=== PATIENT | male | born 1935 | race Caucasian/White ===

== ENCOUNTER → 2016-09-19 | Outpatient (CLI) | payer BC ==
[~2016-09-19] MED LIST: ASPEC81 PO; LACT10SO17 PO; LPT20 PO; MULT-506 PO; OMEP20TA PO; PRCSR30 PO; PRS5 PO; TERA5CAP PO; THIA50TA3 PO
--- NOTE | 2016-09-19 09:43 | DIAGNOSTIC IMAGING REPORT ---
KUB CLINICAL HISTORY: Nephrolithiasis. COMPARISON STUDY: KUB August 03, 2015. FINDINGS: A 3 mm calculus within the lower pole of the left kidney is unchanged. No ureteral calculi are identified. Pelvic calcifications represent phleboliths. There are cholecystectomy clips. IMPRESSION: 1. No change in a 3 mm left renal calculus. 2. No ureteral calculi identified. Electronically signed by: Markus Lima M.D. 09/19/2016 9:41 AM Dictated Date/Time: 09/19/2016 9:39 AM
== END | disposition home or self-care (01) ==
LOC: C.RAD 08:49
PROVIDERS: ATTEND Urology
DX: N20.0 Calculus of kidney (principal); N40.1 Benign prostatic hyperplasia with lower urinary tract symptoms

== ENCOUNTER → 2016-10-25 | Outpatient (CLI) | payer BC ==
[2016-10-25 12:40] LABS: ESTIMATED AVERAGE GLUCOSE 131 mg/dl; HA1C FLAG Normal (Normal)
[2016-10-25 12:42] LABS: ALT/SGPT 30 U/L (12-78); BLOOD UREA NITROGEN 14 mg/dl (7-18); BUN/CREATININE RATIO 15.8 (10-20); CALCIUM 8.7 mg/dl (8.5-10.1); CARBON DIOXIDE 29 mmol/L (21-32); CHLORIDE 108 mmol/L (98-107); GLUCOSE 98 mg/dl (70-99); POTASSIUM 4.3 mmol/L (3.5-5.1); SODIUM 140 mmol/L (136-145)
[2016-10-25 12:44] LABS: ALB/GLOB RATIO 1.2 (0.9-2); ALKALINE PHOSPHATASE 70 U/L (45-117); AST/SGOT 31 U/L (15-37); CHOLESTEROL 114 mg/dl (0-200); CHOLESTEROL/HDL RATIO 1.8; HDL CHOLESTEROL 65 mg/dl; LDL CHOLESTEROL CALCULATED 36 mg/dl; TRIGLYCERIDES 67 mg/dl (0-150); VERY LOW DENSITY LIPOPROT CALC 13 mg/dl
[2016-10-25 12:45] LABS: HEMATOCRIT 39.2 % (42-52); MEAN CORPUSCULAR HEMOGLOBIN 30.7 pg (25-34); MEAN CORPUSCULAR HGB CONC 32.7 g/dl (32-36); MEAN PLATELET VOLUME 12.3 fL (7.4-10.4); PLATELET COUNT 114 K/uL (130-400); RED BLOOD COUNT 4.17 M/uL (4.7-6.1); WHITE BLOOD COUNT 5.27 K/uL (4.8-10.8)
[2016-10-25 13:35] LABS: BASO % 0.4 %; BASO ABS # 0.02 K/uL (0-0.2); COMPLETE YES; EOS % 7.2 %; IG% 0.4 %; LYMPH % 35.3 %; LYMPH ABS # 1.86 K/uL (1.2-3.4); MONO % 6.3 %; NEUT % 50.4 %
--- NOTE | 2016-10-30 07:36 | CODING QUERY MEDICAL NECESSITY ---
SUPPORTING DIAGNOSIS NEEDED A supporting diagnosis is required for the test/procedure performed on this patient in order for us to be reimbursed by the patient's insurance. Please provide a supporting diagnosis for the following test/procedure listed below next to the test name along with your signature. *If there is no additional diagnosis for this patient that would support the following test/procedure please document that below next to the test/procedure. Test(s)/Procedure(s) that require a supporting diagnosis: * HEMOGLOBIN A1C DIAGNOSIS: Provider Signature: Date: Thank you Ana Antonio [employer] Once completed, please kindly fax back to [phone] For questions please call [phone]
== END | disposition home or self-care (01) ==
LOC: C.LABBFT 08:18
PROVIDERS: ATTEND Internal Medicine
DX: R26.0 Ataxic gait (principal); R73.9 Hyperglycemia, unspecified

== ENCOUNTER → 2017-06-19 | Outpatient (CLI) | payer BC ==
[2017-06-19 09:44] LABS: BASO % 0.5 %; BASO ABS # 0.03 K/uL (0-0.2); EOS % 5.8 %; EOS ABS # 0.36 K/uL (0-0.5); HEMATOCRIT 40.3 % (42-52); HEMOGLOBIN 13.9 g/dL (14.0-18.0); IG# 0.01 K/uL (0.00-0.02); LYMPH ABS # 1.62 K/uL (1.2-3.4); MEAN CELL VOLUME 91.4 fL (80-100); MEAN CORPUSCULAR HEMOGLOBIN 31.5 pg (25-34); MEAN CORPUSCULAR HGB CONC 34.5 g/dl (32-36); MEAN PLATELET VOLUME 11.1 fL (7.4-10.4); MONO % 7.7 %; MONO ABS # 0.48 K/uL (0.11-0.59); NEUT % 59.8 %; NEUT ABS # 3.72 K/uL (1.4-6.5); PLATELET COUNT 102 K/uL (130-400); RED CELL DISTRIBUTION WIDTH CV 12.6 % (11.5-14.5); WHITE BLOOD COUNT 6.22 K/uL (4.8-10.8)
[2017-06-19 10:17] LABS: BLOOD UREA NITROGEN 17 mg/dl (7-18); CALCIUM 8.7 mg/dl (8.5-10.1); CARBON DIOXIDE 28 mmol/L (21-32); CREATININE 0.89 mg/dl (0.60-1.40); GLUCOSE 102 mg/dl (70-99); POTASSIUM 4.2 mmol/L (3.5-5.1); SODIUM 139 mmol/L (136-145); URIC ACID 5.4 mg/dl (2.6-7.2)
[2017-06-19 10:27] LABS: CHOLESTEROL 117 mg/dl (0-200); LDL CHOLESTEROL CALCULATED 47 mg/dl
[2017-06-19 10:33] LABS: HEMOGLOBIN A1C 6.1 % (4.5-5.6)
== END | disposition home or self-care (01) ==
LOC: C.LABBFT 08:41
PROVIDERS: ATTEND Internal Medicine
DX: E78.5 Hyperlipidemia, unspecified (principal)

== ENCOUNTER → 2017-10-21 | Outpatient (CLI) | payer BC ==
[~2017-10-21] MED LIST changes: +ACET-24 PO; -ASPEC81 PO; +ASPI81TA28 PO; +ATOR-22 PO; +CLB100 PO; +FINA5TAB PO; -LACT10SO17 PO; +LACT10SO3 PO; +LDDP5 TD; -LPT20 PO; -OMEP20TA PO; -PRCSR30 PO; +PRLSR20 PO; -PRS5 PO
--- NOTE | 2017-10-21 10:59 | DIAGNOSTIC IMAGING REPORT ---
KUB HISTORY: Follow-up study in a patient with nephrolithiasis NEPHROLITHIASIS COMPARISON: KUB 09/19/2016, CT 10/01/2017. FINDINGS: The bowel gas pattern is non-obstructive. There is no organomegaly. Left nephrolithiasis redemonstrated measuring up to 2 mm. No ureteral calculi identified. Vascular calcifications about the pelvis are noted. Cholecystectomy clips. No pneumoperitoneum or pneumatosis. No fracture. Degenerative changes of the lower lumbar spine, pelvis and hips. Chronic interstitial opacities about the lung bases. IMPRESSION: Left nephrolithiasis without ureteral calculi. Electronically signed by: Elver Bain M.D. 10/21/2017 10:58 AM Dictated Date/Time: 10/21/2017 10:49 AM
== END | disposition home or self-care (01) ==
LOC: C.RAD 10:34
PROVIDERS: ATTEND Urology
DX: N20.0 Calculus of kidney (principal)

== ENCOUNTER 2020-09-14 08:45 | Observation (INO) ==
--- NOTE | 2020-09-07 11:30 | Anesthesiology Consultation ---
Date of Service September 07, 2020 Assessment & Plan (1) Encounter for pre-operative examination: COVID Status: As of 09/07 PAT second vp hr assessment, patient denies travel to endemic area, known exposure/sick contacts, or symptoms of COVID19. Patient fully vaccinated with Pfizer vaccine as of 05/20/2020. He reports he no longer wears a mask if it is not required. Preoperative COVID19 testing to be completed on 09/12. Cardiology clearance 08/02/2020: "I believe his degree of aortic stenosis is not quite severe. The imaging seemed adequate, and the dimensionless index was approximately 0.34. There were no velocities over 4 m/sec. He is not appear to have symptoms associated with severe aortic stenosis. He was actually out shoveling snow a short time frame before his echo examination. He did not have symptoms of chest pain or limiting dyspnea at that time. 2. Preoperative: He never completed the stress portion of his echocardiogram. I think we can order a perfusion study to see if there is any high risk coronary disease. In the absence of high risk coronary disease I think he would be a reasonable candidate for operative intervention. If a procedure done under local anesthetic is expected to have less hemodynamic effect, this would be preferable over a general anesthetic." Pt completed myocardial perfusion study on 08/23, negative for ischemia. Nephrology/PCP office visit 08/11/2020: "...his major complaint are symptoms of his left inguinal hernia...His other issues seem to be stable. His blood pressure is adequate. His hemoglobin A1c is only in a borderline range. His aortic stenosis does not seem to be particularly severe. He has not had any recent issues with nephrolithiasis. He does have benign prostatic hypertrophy from which she is only minimally symptomatic. 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 A peripheral neuropathy may be related to his hepatic disease but also may be related to his age. He has significant pulmonary fibrosis noted on CT scan. However, he seems to be doing quite well with no evidence of respiratory failure. He does have an intermittent cough but I doubt that that is related to his pulmonary fibrosis. I will make no changes in his regimen pending his stress test." Pulmonary Clearance 09/02/20: "85-year-old male with significant bronchiectasis to the bilateral lower lobes as well as subpleural fibrosis. Serological evaluation was negative and follow-up CT scan does demonstrate some progression of the severe bronchiectatic and fibrotic changes. His quantitative immunoglobulins did show a mildly decreased IgG subclass however the clinical significance of this is unclear especially in an 85-year-old gentleman...Abnormal CT scan: The patient does have an area of thick-walled cavity formation in the left lower lobe. This may be infectious but he is devoid of symptoms. I recommended a follow-up CT scan in 2months...The patient would like to get a hernia repair done as quickly as possible. 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 He is at risk for pulmonary complications in the postoperative setting including hypoxemia, pneumonia, and respiratory insufficiency. I believe he is as optimized as we can get him from a pulmonary standpoint and I think he can undergo the proposed surgical procedure without additional work-up. He may require supplemental oxygen. Early ambulation and mobilization is recommended. DVT prophylaxis per general surgery. We would be happy to assist with perioperative or postoperative respiratory issues if needed. If the surgery can be done without a general anesthesia, it may decrea se the risk of his pulmonary complications. Planned procedure is laparoscopic, requiring general anesthesia. Based on above recommendations from cardio and pulmonary, preferred approach would be open hernia repair with sedation with local anesthesia to reduce complications. Discussed case with Hemant Rodriguez and Malathi. Agree sedation would be preferable, should be discussed with surgeon, and patient needs to be aware of increased risk of pulmonary complications with GA. Advise this be discussed between surgeon, patient and [facility] DOS. Per surgeon's H+P, plan is to admit patient post-op due to significant comorbidities. Due to increased burden of inpatients from COVID-19 pandemic, patient may be cohorted with a roommate post-op. Will thus plan for recheck with [employer] [facility] AM DOS. OR aware. [facility] order placed. Chart Review Chart Review: Acceptable Risk for Surgery and Patient NOT seen in Pre Admission Testing History Surgery Operation Date: 09/14/20 07:00 Proposed Procedures p Left Laparoscopic Inguinal Hernia Repair, Possible Right Inguinal Hernia Repair - John Roberts, DO, FACS Height/Weight Height: 5 ft 7 in Weight: 77.111 kg Allergies Allergy/AdvReac Type Severity Reaction Status Date / Time No Known Drug Allergies Allergy Unknown Verified 09/07/20 09:49 Medications Home Medications Medication Instructions Recorded Confirmed Last Taken thiamine HCl (vitamin B1) 50 mg 50 mg PO QAM tab 10/06/19 09/07/20 Unknown tablet nystatin-triamcinolone 100,000 1 appln TOPICAL BID #1 gm 10/21/19 09/07/20 Unknown unit/g-0.1 % topical cream albuterol sulfate 90 mcg/actuation 1 puff INH Q6H PRN #6.7 gm 05/23/20 09/07/20 Unknown aerosol inhaler docusate sodium 100 mg capsule 100 mg PO BID #60 cap 07/12/20 09/07/20 Unknown aspirin [Aspir-81] 81 mg PO QPM 07/22/20 09/07/20 Unknown finasteride 5 mg PO QPM 07/22/20 09/07/20 Unknown lactulose 10 g PO BID 07/22/20 09/07/20 Unknown halhcviuatya-kophgkmp-wltkmb 1 tab PO QAM 07/22/20 09/07/20 Unknown [Multivitamin 50 Plus] omeprazole 20 mg PO QAM 07/22/20 09/07/20 Unknown terazosin 5 mg PO QPM 07/22/20 09/07/20 Unknown atorvastatin 20 mg tablet 20 mg PO QPM #90 tab 09/02/20 09/07/20 Unknown tramadol 50 mg tablet 25 mg PO TID PRN #60 tab 09/02/20 09/07/20 Unknown vit C,X-Bh-hbkjx-lutein-zeaxan 1 tab PO BID 09/07/20 09/07/20 Unknown [PreserVision AREDS-2] Past Medical History Medical History Aortic valve stenosis At least moderate aortic stenosis. Patient was scheduled for nuclear stress echo 06/01/2020 but due to possible severe aortic stenosis noted on imaging felt best not to perform dobutamine stress. Patient had subsequent follow-up with cardiology, who feel the patient most likely has moderate aortic stenosis. He is asymptomatic. Bronchiect[facility]. Per high-red CT 08/30/20, "Severe bronchiectasis and multifocal subpleural reticulation and honeycombing consistent with pulmonary fibrosis. Mild progression since CT of October 14, 2018." Cerebral infarction, unspecified ~8 years ago (~2011). no deficits. Chronic cough Enlarged prostate Gastroesophageal reflux disease (07/21/12) Hearing loss Hyperglycemia Hgb A1C 5.9 on 04/06/20 Hypertension Interstitial pulmonary fibrosis Following with pulm for work up Laennec's cirrhosis (alcoholic) Cirrhosis with splenomegaly indicative of portal hypertension noted on high- res CT 08/30/20. Peripheral neuropathy Schatzki's ring SNHL (sensorineural hearing loss) SOB (shortness of breath) on exertion Transient ischemic attack Past Family History Family History Mother Heart disease Family/Other Family history of diabetes mellitus [place]AND[place] Other Hypertension Denies family history of Prostate cancer Past Surgical History Surgical History History of cataract surgery bilateral History of cholecystectomy 2010 History of colonoscopy History of esophagogastroduodenoscopy (EGD) History of hernia repair [facility] [address] [facility] Social History Smoking Status: Former smoker tobacco type: cigarettes Do You Dip or Chew Tobacco: No Smoking End Date: ~ Hx Alcohol Use: No Hx Substance Use: No substance use type: does not use Lab Results Anesthesia Preop Results Results Anesthesia Widget: WBC 5.32 K/uL (4.8-10.8) 08/08/20 Hgb 12.0 g/dL (14.0-18.0) L 08/08/20 Hct 36.6 % (42-52) L 08/08/20 Plt 117 K/uL (130-400) L 08/08/20 Na 142 mmol/L (136-145) 08/08/20 K 4.1 mmol/L (3.5-5.1) 08/08/20 Cl 108 mmol/L (98-107) H 08/08/20 CO2 30 mmol/L (21-32) 08/08/20 BUN 20 mg/dl (7-18) H 08/08/20 Creat 0.68 mg/dl (0.6-1.4) 08/08/20 Glucose Level 98 mg/dl (70-99) 08/08/20 TSH 1.980 uIu/ml (0.300-4.500) 08/08/20 HA1c 5.9 % (4.5-5.6) H 08/08/20 Testing Electrocardiogram Date: 07/27/20 Sinus rhythm at 79 bpm with first-degree AV block. Chest X-Ray Date: 06/23/20 IMPRESSION: Chronic interstitial lung disease and bronchiectasis. There is progressively worsened peripheral predominant interstitial opacities within the left greater than right lungs. Findings may be secondary to worsening fibrosis versus a superimposed infectious or inflammatory pneumonitis. Echocardiogram Date: 06/01/20 The patient has been scheduled for dobutamine stress echocardiogram. However there is evidence of aortic stenosis. The aortic valve could not be adequately visualized. With a limited views of the aortic valve there was at least moderate aortic stenosis. More significant aortic stenosis cannot be excluded based on this study. Because of the possibility of severe aortic stenosis it was felt best not to perform dobutamine stress. Resting echo images: Mild LVH. Normal LV systolic function and wall motion. Hyperdynamic overall left ventricular systolic function. EF greater than 70%. Normal LV size. The right ventricle was not well visualized. However the size and systolic function of the right ventricle appeared to be normal. No significant valvular regurgitation noted. Aortic valve was poorly visualized. It was difficult to sample the velocity across the aortic valve. With the available velocity sample to cross the aortic valve and the LV outflow tract the dimensionless aortic valve index was 0.34. This is consistent with moderate aortic stenosis. Stress Test Date: 08/23/20 Type: nuclear SUMMARY: 1. Lexiscan myocardial perfusion study negative for myocardial infarction or myocardial ischemia. 2. Non-dilated left ventricle with normal systolic function and no wall motion abnormalities. EF 80%. 3. Non-diagnostic stress ECG due to sub-maximal HR achieved with pharmacologic stress. No ischemic changes or ectopy seen. Other Testing High-resolution CT 08/30/2020 IMPRESSION: 1. Severe bronchiectasis and multifocal subpleural reticulation and honeycombing consistent with pulmonary fibrosis. Mild progression since CT of October 14, 2018. 2. Interval development of a 2.8 cm cavitary thick-walled left lower lobe lesion with smaller adjacent irregular nodules and apparent bronchovascular thickening/soft tissue within the left lower lobe. Although these findings may be infectious, a neoplastic etiology could appear similar. A short-term follow- up CT in 1 to 2 months is recommended. 3. Mildly enlarged mediastinal lymph nodes, slightly increased in size since CT of October 14, 2018. These are nonspecific in the setting of interstitial lung disease and can be assessed on follow-up chest CT. 4. Cirrhosis with splenomegaly indicative of portal hypertension. ACT 112: Positive. There are findings on this exam that require communication between the performing entity and the patient following Patient Test Result Information Act ([place] Act 112) guidelines. *reviewed by pulmonology, see office note
[~2020-09-14 08:45] MED LIST changes: -ACET-24 PO; -ASPI81TA28 PO; -ATOR-22 PO; -CLB100 PO; -FINA5TAB PO; -LACT10SO3 PO; -LDDP5 TD; +LR 15ML/HR IV SCH; -MULT-506 PO; -PRLSR20 PO; -TERA5CAP PO; -THIA50TA3 PO; +ceFAZolin 2000MG 2,000 MG/15 ML SYR IV SCH
--- NOTE | 2020-09-14 10:03 | History & Physical Bridge Note ---
Date of Service September 14, 2020 History & Physical Bridge Note I have examined the patient, reviewed the History & Physical and in the interval since the performance of the History & Physical I have noted the following changes of clinical significance: no changes noted
[2020-09-14] MEDS ORDERED: MIDAZOLAM HCL 1 MG/ML 2ML VIAL ONE (10:42)
[2020-09-14] MEDS ORDERED: fentaNYL citrate 100 MCG/2 ML VIAL ONE ×2 (10:42→12:27)
[2020-09-14] MEDS ORDERED: ONDANSETRON INJ 2 MG/ML 2 ML VIAL IV PRN ×2 (10:52→13:59)
[2020-09-14] MEDS ORDERED: KETOROLAC TROMETHAMINE 15 MG/ML VIAL IV PRN (10:52)
[2020-09-14] MEDS ORDERED: ALBUTEROL 0.083% NEBU SOLN 3 ML VIAL INH PRN (10:52)
[2020-09-14] MEDS ORDERED: ATROPINE SULFATE 0.1 MG/ML 10ML SYR IV PRN (10:52)
[2020-09-14] MEDS ORDERED: fentaNYL citrate 100 MCG/2 ML VIAL IV PRN (10:52)
[2020-09-14] MEDS ORDERED: BUPIVACAINE 0.5 % 5 MG/1 ML MPF 30ML VIAL ONE (11:07)
[2020-09-14] MEDS ORDERED: ETOMIDATE 2 MG/ML 20 ML VIAL IV ONE (12:00)
[2020-09-14] MEDS ORDERED: GLYCOPYRROLATE 0.2 MG/ML VIAL ONE (12:00)
[2020-09-14] MEDS ORDERED: ROCURONIUM BROMIDE 10 MG/ML 5 ML VIAL IV ONE (12:00)
[2020-09-14] MEDS ORDERED: NEOSTIGMINE METHYLSULFATE 1 MG/ML 10ML VIAL ONE (12:00)
[2020-09-14] MEDS ORDERED: PROPOFOL IV EMULSION 10 MG/ML 20 ML VIAL IV ONE (12:00)
[2020-09-14] MEDS ORDERED: ONDANSETRON INJ 2 MG/ML 2 ML VIAL ONE (12:00)
--- NOTE | 2020-09-14 12:46 | Operative Report ---
PG Post Operative Report Pre & Post Diagnosis Operation Date: 09/14/20 10:50 Pre-Op Diagnosis: Left Inguinal Hernia Post-Op Diagnosis: Recurrent left Inguinal Hernia I identified the patient and participated in the time-out.: Yes Procedure Operation Date: 09/14/20 10:50 Actual Procedures p Left Laparoscopic Inguinal Hernia Repair with Mesh(Left) - John Roberts DO, REYES Surgeon John Roberts DO, REYES Instrumentation And Controls Designer Nima Gonzalez Estimated Blood Loss 5 Findings Consistent with Post-Op Diagnosis Moderate recurrent indirect inguinal hernia on the left. Scarring on the right and no evidence of obvious hernia, right not explored. ProGrip mesh placed in the left. Specimens None Anesthesia Type General Complications none Disposition Accompanied Patient To Recovery: No Disposition: Recovery Room Indications 85-year-old male with recurrent symptomatic moderate sized left inguinal hernia, desires repair. We discussed his repair options to include open repair under sedation versus laparoscopic repair under general anesthesia. He was cleared for general anesthesia by pulmonology, cardiology, and nephrology. Plan for laparoscopic left inguinal hernia repair, possible right. The risks of the procedure were discussed, all questions were answered, and the patient agreed to proceed with surgery as planned. Description of Procedure The patient was properly identified, consented, and taken to the operating room where he was placed in the supine position. General endotracheal anesthesia was induced. SCDs and a safety belt were placed. A cook catheter was placed. Preoperative antibiotics were administered. The patient's groins and abdomen were prepped and draped in the standard sterile fashion. Surgical timeout was performed and all parties were in agreement that this was the correct patient and procedure to be performed and we continued as planned. A transverse infraumbilical incision was made to the right of midline with electrocautery and deepened down to the fascia with blunt dissection. A transverse incision was made in the anterior rectus sheath on the right. The rectus muscle was pulled laterally exposing the posterior rectus sheath. A large Marla was used to bluntly dissect the preperitoneal space down to the pubic symphysis. This was then replaced with a laparoscopic preperitoneal dissection balloon, which was inflated under direct visualization and held in place for approximately 30 seconds. This was then removed and the preperitoneal space was insufflated with carbon dioxide which the patient tolerated without incident. Two 5 mm ports were then placed in the midline. Dissection started on the left, beginning laterally at the anterior superior iliac spine. Bernardo's ligament was then dissected medially. The cord structures were circumferentially dissected. A moderate sized recurrent indirect inguinal hernia was noted. It was dissected away from the cord structures. The contralateral side was then dissected in a similar manner. There was some scarring from his prior repair and therefore we did not explore too much. There was no evidence of a recurrent hernia on the right. Progrip mesh was placed on the left and covered the direct, indirect, and femoral spaces. The mesh was held in place, the ports were removed, and the space was allowed to collapse. The anterior rectus sheath fascia was closed with 3-0 Vicryl suture. The skin of all port sites were closed with 4-0 Monocryl subcuticular suture, and Dermabond was placed over the incisions. The patient was extubated in the operating room and taken to the PACU for recovery without apparent incident. Any air in the scrotum was reduced, and the testicles were confirmed to be in the scrotum. All sponge, instrument, and needle counts were correct at the conclusion of the procedure. The patient tolerated the procedure well. The physician's marketing assistant retail division was present and scrubbed for the entire the case. He was critical in positioning the patient, prepping and draping, retraction and exposure, driving the laparoscope, closure the incisions, placement of the dressings. I attest to the content of the Intraoperative Record and any orders documented therein. Any exceptions are noted below.
--- NOTE | 2020-09-14 13:30 | Anesthesiology Progress Note ---
Date of Service September 14, 2020 Anesthesia Post Procedure Vital Signs Vital Signs: Temp Pulse Pulse Resp BP Pulse Ox 09/14/20 13:25 36.4 C L 71 20 142/75 H 98 09/14/20 13:15 77 24 175/85 H 100 09/14/20 13:05 82 24 187/95 H 100 09/14/20 12:55 88 24 185/94 H 98 09/14/20 12:49 36.1 C L 82 22 173/92 H 100 09/14/20 09:30 36.6 C 74 18 189/96 H 98 Transfer of Care Handoff Completed per policy Notes Mental Status: alert / awake / arousable Patient Amnestic to Procedure: Yes Nausea / Vomiting: adequately controlled Pain: adequately controlled Airway Patency, RR, SpO2: stable & adequate BP & HR: stable & adequate Hydration State: stable & adequate Anesthetic Complications: no major complications apparent
[2020-09-14] MEDS ORDERED: MoRPHine SULFATE 2 MG/ML CARP IV PRN (13:59)
[2020-09-14] MEDS ORDERED: ALBUTEROL HFA 8 GM INHALER INH PRN (13:59)
[2020-09-14] MEDS ORDERED: LACTATED RINGER'S 1,000 ML IV SCH (13:59)
[2020-09-14] MEDS ORDERED: MoRPHine SULFATE 4 MG/ML 1 ML CARP\\VIAL IV PRN (13:59)
[2020-09-14] MEDS ORDERED: oxyCODONE/ACETAMINOPHEN 5mg/325mg TAB PO PRN ×2 (13:59)
--- NOTE | 2020-09-14 15:32 | Surgery Progress Note ---
Date of Service September 14, 2020 Assessment & Plan (1) Left inguinal hernia: stable post op f/u in AM Admission and Anticipated Discharge Date Admission Date: September 14, 2020 Subjective had clear tray for lunch, minimal pain, no CP/SOB Results & Data ([facility]) Vital Signs (Past 12 Hours) Vital Signs Temp Pulse Pulse Resp BP Pulse Ox 09/14/20 14:42 36.5 C 54 L 16 123/67 97 09/14/20 14:12 36.5 C 71 18 119/68 97 09/14/20 13:40 36.4 C L 24 134/70 97 09/14/20 13:35 64 24 142/75 H 98 09/14/20 13:25 36.4 C L 71 20 142/75 H 98 09/14/20 13:15 77 24 175/85 H 100 09/14/20 13:05 82 24 187/95 H 100 09/14/20 12:55 88 24 185/94 H 98 09/14/20 12:49 36.1 C L 82 22 173/92 H 100 09/14/20 09:30 36.6 C 74 18 189/96 H 98 PG Care Time/CCT Total # of Minutes Spent Total Time Spent with Patient: Total time spent is greater than 50% in coordination of care (as documented) at patient's floor/unit and/or counseling patient: Coding Level of Care Code None Diagnoses Left inguinal hernia K40.90
[2020-09-14] MEDS: DOCUSATE SODIUM 100 MG CAP PO SCH (19:42)
[2020-09-14] MEDS: LACTULOSE SYRUP 10 GM/15 ML BTL 960 ML PO SCH (19:44)
[2020-09-14] MEDS ORDERED: ATORVASTATIN 20 MG TAB PO SCH (21:00)
[2020-09-14] MEDS ORDERED: FINASTERIDE 5 MG TAB PO SCH (21:00)
[2020-09-14] MEDS ORDERED: TERAZOSIN HCL 5 MG CAP PO SCH (21:00)
[2020-09-14] MEDS ORDERED: ASPIRIN 81 MG ECTAB PO SCH (21:00)
--- NOTE | 2020-09-15 08:36 | Anesthesiology Progress Note ---
Date of Service September 15, 2020 Anesthesia Post Procedure Vital Signs Vital Signs: Temp Pulse Pulse Pulse Resp BP BP 09/15/20 07:30 37 C 69 18 145/84 H 09/15/20 03:05 36.8 C 72 17 144/64 H 09/14/20 22:08 36.4 C L 61 18 125/65 09/14/20 20:29 36.7 C 59 L 19 124/61 09/14/20 16:49 36.5 C 53 L 16 128/65 09/14/20 15:41 36.4 C L 68 16 112/60 09/14/20 14:42 36.5 C 54 L 16 123/67 09/14/20 14:12 36.5 C 71 18 119/68 09/14/20 13:40 36.4 C L 24 134/70 09/14/20 13:35 64 24 142/75 H 09/14/20 13:25 36.4 C L 71 20 142/75 H 09/14/20 13:15 77 24 175/85 H 09/14/20 13:05 82 24 187/95 H 09/14/20 12:55 88 24 185/94 H 09/14/20 12:49 36.1 C L 82 22 173/92 H 09/14/20 09:30 36.6 C 74 18 189/96 H Pulse Ox 09/15/20 07:30 92 09/15/20 03:05 93 09/14/20 22:08 93 09/14/20 20:29 94 09/14/20 16:49 98 09/14/20 15:41 99 09/14/20 14:42 97 09/14/20 14:12 97 09/14/20 13:40 97 09/14/20 13:35 98 09/14/20 13:25 98 09/14/20 13:15 100 09/14/20 13:05 100 09/14/20 12:55 98 09/14/20 12:49 100 09/14/20 09:30 98 Pain Intensity Lower Abdomen: Pain Intensity: 3 Notes Mental Status: alert / awake / arousable and participated in evaluation Patient Amnestic to Procedure: Yes Nausea / Vomiting: adequately controlled Pain: adequately controlled Airway Patency, RR, SpO2: stable & adequate BP & HR: stable & adequate Hydration State: stable & adequate Anesthetic Complications: no major complications apparent
[2020-09-15] MEDS: DOCUSATE SODIUM 100 MG CAP PO SCH (08:42)
[2020-09-15] MEDS: LACTULOSE SYRUP 10 GM/15 ML BTL 960 ML PO SCH (08:42)
[2020-09-15] MEDS ORDERED: PANTOprazole 40 MG TAB PO SCH (09:00)
--- NOTE | 2020-09-15 09:09 | Surgery Progress Note ---
Date of Service September 15, 2020 Assessment & Plan (1) Left inguinal hernia: POD#1 laparoscopic left inguinal hernia repair Patient doing well from surgical standpoint Tolerating a diet, denies pain/nausea/vomiting Abdomen soft, incisions c/d/i He has post op urinary retention requiring straight-cath x2. He feels like he has to go again. Spoke with RN, if he does not void spontaneously on next attempt we will replace a cook catheter and have patient follow up in the urology clinic. Cook catheter teaching to be performed prior to discharge. Patient agreeable with this plan. He says he has followed with urology in the past Dispo instructions reviewed... pt to follow up with Dr. Roberts in clinic within 1-2 weeks Admission and Anticipated Discharge Date Admission Date: September 14, 2020 Subjective Patient says he is feeling well. He has had some trouble with voiding overnight requiring straight-cath x2. He is already starting to feel bladder pressure again. He is otherwise tolerating a diet, no nausea/vomiting. He denies any abdominal pain. Physical Exam Physical Exam: awake/alert Constitutional: well developed and well nourished; no acute distress Respiratory: normal respiratory effort Gastrointestinal (Abdomen): Inspection/Auscultation: + abdominal surgical incision (incisions c/d/i with dermabond overtop, no signs of infection); abdomen not distended Percussion/Palpation: abdomen soft; abdomen nontender Results & Data ([facility]) Vital Signs (Past 12 Hours) Vital Signs Temp Pulse Pulse Resp BP Pulse Ox 09/15/20 07:30 37 C 69 18 145/84 H 92 09/15/20 03:05 36.8 C 72 17 144/64 H 93 09/14/20 22:08 36.4 C L 61 18 125/65 93 PG Care Time/CCT Total # of Minutes Spent Total Time Spent with Patient: Total time spent is greater than 50% in coordination of care (as documented) at patient's floor/unit and/or counseling patient: Coding Level of Care Code None Diagnoses Left inguinal hernia K40.90
--- NOTE | 2020-09-20 11:45 | Discharge Summary ---
Date of Service September 20, 2020 Principal Diagnosis Left inguinal hernia Urinary retention Discharge Exam Gastrointestinal (Abdomen) Inspection/Auscultation: + abdominal surgical incision (clean, dry) Percussion/Palpation: abdomen soft Discharge Data Allergies Allergy/AdvReac Type Severity Reaction Status Date / Time No Known Drug Allergies Allergy Unknown Verified 09/14/20 09:11 Procedures Performed Operation Date: 09/14/20 10:50 Actual Procedures p Left Laparoscopic Inguinal Hernia Repair with Mesh(Left) - John Roberts DO, FACS Hospital Course (1) Left inguinal hernia: 85 y/o male was taken to the operating room for laparoscopic left inguinal hernia repair. He was transferred to the surgical floor for overnight observation given his medical history and age. He did require several straight catheterizations overnight but was otherwise doing well. In the morning a cook cath was placed and plans were made for outpatient urology follow-up which he h as had in the past. He was tolerating diet and oral analgesics and was stable for discharge home with the cook. Total Time Total Time Spent Total Time Spent (In Minutes): 10 Discharge Plan Discharge Items Patient Disposition: Home - Self-Care Reason For Visit: Left Inguinal Hernia Discharge Diagnosis: left inguinal hernia repair Activity: Per Instructions section Lifting: No more than 10 pounds Bathing Comment: may shower; no soaking in tubs/pools Exercise/Sports: Wait until after follow-up appointment Driving/Machine Use: no driving while taking narcotics for pain Non-emergency contact: Surgeon Call non-emergency contact if: you have any medication questions, your symptoms worsen, your pain is not controlled, your pain is concerning for you, you have a fever, your temperature is above 101.5, your wound has increased redness, your wound has increased drainage and your wound pain has increased Follow-up/Referrals: Kvng Crabtree MD [Physician] - (The Urology office will call you with an appointment to follow up with them next week for removal of your cook and to perform a voiding trial. If you have not heard from them by 09/19/20 please call their office at [phone].) Kory Pham MD [Primary Care Provider] - John Roberts DO, FACS [Physician] - 09/27/20 9:00 am (Please call to schedule follow up in clinic within 1-2 weeks) Diet: Regular Addtl Attending Provider Instructions: You may ice your groin on and off alternating every 20 minutes as needed to help with pain/swelling. Please care for your cook catheter as instructed prior to discharge from the hospital. The Urology office will call you with an appointment to follow up with them next week for removal of your cook and perform a voiding trial. If you have not heard from them by 09/19/20 please call their office at [phone] to inquire for an appointment. Pending Studies at Discharge: No Stand-Alone Forms: [facility], Opioid Pain Management, Smoking Cessation Medications and DC Order Prescriptions: New oxycodone-acetaminophen [Percocet] 5-325 mg tablet 1 - 2 tab PO .q4-6h PRN (Reason: pain, for initial therapy, max 6 tabs per day) Qty: 10 RF: 0 Continued nystatin-triamcinolone 100,000-0.1 unit/g-% cream 1 appln topical BID Qty: 1 RF: 1 atorvastatin 20 mg tablet 20 mg PO QPM Qty: 90 RF: 3 albuterol sulfate 90 mcg/actuation HFA aerosol inhaler 1 puff INH Q6H PRN (Reason: shortness of breath or wheezing) Qty: 6.7 RF: 5 docusate sodium [Colace] 100 mg capsule 100 mg PO BID Qty: 60 RF: 0 thiamine HCl (vitamin B1) 50 mg tablet 50 mg PO QAM RF: 0 finasteride 5 mg tablet 5 mg PO QPM RF: 0 lactulose 10 gram/15 mL solution 10 g PO BID RF: 0 terazosin 5 mg capsule 5 mg PO QPM RF: 0 omeprazole 20 mg tablet,delayed release (DR/EC) 20 mg PO QAM RF: 0 aspirin 81 mg Tablet,Delayed Release (Dr/Ec) 81 mg PO QPM RF: 0 Multivitamin 50 Plus Tablet 1 tab PO QAM RF: 0 PreserVision AREDS-2 250-90-40-1 mg Capsule 1 tab PO BID RF: 0 Discontinued tramadol 50 mg tablet 25 mg PO TID PRN (Reason: pain) Qty: 60 RF: 3 Discharge Orders: Discharge Order (Routine); Ordered 09/15/20 Ordered By: Laurita Briggs/Other Patient Handouts: Discharge Instructions Caring for ... Admission Data Admit Date/Time: 09/14/20 12:50 Attending Provider: John Roberts Admit Provider: John oRberts Primary Care Provider: Kory Pham Other Interventions: Discharge Summary Assessment (RN) Last Done: 09/15/20 09:26 Coding Level of Care Code D/C Day Management <30 mins Diagnoses Left inguinal hernia K40.90
== END 2020-09-15 11:19 | disposition home or self-care (01) ==
LOC: 3N 08:45 → ASU 08:45
DX: I35.0 Nonrheumatic aortic (valve) stenosis; G62.9 Polyneuropathy, unspecified; K40.91 Unilateral inguinal hernia, without obstruction or gangrene, recurrent; Z79.82 Long term (current) use of aspirin; Z98.890 Other specified postprocedural states; Z79.899 Other long term (current) drug therapy; Z86.73 Personal history of transient ischemic attack (TIA), and cerebral infarction without residual deficits; Z87.891 Personal history of nicotine dependence; I10 Essential (primary) hypertension; K21.9 Gastro-esophageal reflux disease without esophagitis; K70.30 Alcoholic cirrhosis of liver without ascites

== ENCOUNTER 2021-01-19 17:45 | Inpatient (IN) ==
--- NOTE | 2021-01-19 18:19 | Emergency Department Note ---
Impression & Plan Acute hypoxemic respiratory failure, CHF (congestive heart failure), Leg swelling, Fecal impaction in rectum ED Provider Note NAME: ADDI NG AGE: 85 SEX: M : 1935 ARRIVES VIA: Walk-In INFORMANT: Patient, ED PROVIDER(S): Wilfred Veloz MD Chief Complaint: Constipation HPI: Patient does present due to concern for difficulty with having a bowel movement. The patient states that he has not had a bowel movement since Saturday and is had difficulty with passing gas. Patient states is primarily in the lower abdomen is pressure-like and nonradiating. Patient does have occasional pain in his testicles denies any swelling or penile pain or dysuria Patient denies any recent trauma. Patient has not taken anything at home other than stool softener which has not improved his symptoms. Patient denies any fevers or chills. He is vaccinated for Covid. Patient denies any alcohol tobacco or drug use. Patient denies any narcotics or allergy medications. Patient symptoms have gotten progressively worse over the week and are significantly worse compared to yesterday. Exacerbating or remitting factors. ROS: See HPI for pertinent positives and negatives. A total of 10 systems were reviewed and otherwise negative. Past medical history: See below Surgical history: See below Social history: See below Physical Exam: GENERAL: NAD, wearing glasses, wearing a mask, non-toxic. EYE EXAM: Normal conjunctiva. PERRL, no anisocoria and EOM's grossly intact w/o pain. NECK: Supple, no nuchal rigidity, no adenopathy, non-tender. No signs of meningismus. LUNGS: Decreased breath sounds left base. Normal chest wall mechanics. HEART: NSR, no MRG. ABDOMEN: Abdomen soft, non-tender, normo-active bowel sounds, no masses, no rebound or guarding. BACK: No CVA TTP. SKIN: No rashes and no bruising. : No testicular swelling or masses noted. UPPER EXTREMITIES: Upper extremities are grossly normal. LOWER EXTREMITIES: Grossly normal, 2-3+ bilateral lower extremity edema. NEURO EXAM: A&O x3, cranial nerves II-XII grossly intact, normal speech, moves all 4 extremities on command w/o issue. Differential diagnoses: Appendicitis, testicular torsion, infections, diverticulitis, UTI, obstruction, mesenteric ischemia, aortic pathology, inflammatory bowel disease, renal colic, PUD, pancreatitis, biliary pathology, hernia, volvulus, constipation, as well as other pathologies. Course: Patient was seen and evaluated the bedside. Full history physical exam was performed. Imaging Studies: See Below Cardiac monitoring: An order was placed for continuous cardiac monitoring. The monitor shows a rate of 77 with sinus rhythm. MDM: Patient did present with concern for constipation. Bladder scan was completed which is not very impressive so blood work was obtained given the patient's significant discomfort. Blood work is grossly unremarkable. The patient was noted to be borderline and intermittently hypoxic and thus I did review the patient's most recent weight and the patient is put on about 4 kg. Chest x-ray was obtained after CT showed that the patient may have a pleural effusion. Rectal impaction was also noted and did receive an enema. The patient was given Lasix. The patient was started on supplemental nasal cannula oxygen given the patient's oxygen requirement. I did speak with the on-call hospitalist and the patient was admitted to the medicine service. Patient has a normal white count with mild anemia of 10. Platelet count is unremarkable. The patient's kidney function is unremarkable. BNP was elevated with a negative troponin. Covid negative. Patient did receive antibiotics. Critical Care: I have personally spent 42 minutes of critical care time in direct management of this patient. This includes bedside care, interpretation of diagnostic studies, and testing, discussion with consultants, patient, and family members, and other require inpatient management activities. This 42 minutes is in excess of all separately billable procedures. Past Med/Surg History Medical History Aortic valve stenosis At least moderate aortic stenosis. Patient was scheduled for nuclear stress echo 06/01/2020 but due to possible severe aortic stenosis noted on imaging felt best not to perform dobutamine stress. Patient had subsequent follow-up with cardiology, who feel the patient most likely has moderate aortic stenosis. He is asymptomatic. Bronchiectasis Follows with [facility] pulmonary. Per high-red CT 08/30/20, "Severe bronchiectasis and multifocal subpleural reticulation and honeycombing consistent with pulmonary fibrosis. Mild progression since CT of October 14, 2018." Cerebral infarction, unspecified ~8 years ago (~2011). no deficits. Chronic cough Enlarged prostate Gastroesophageal reflux disease (07/21/12) Hearing loss Hyperglycemia Hgb A1C 5.9 on 04/06/20 Hypertension Interstitial pulmonary fibrosis Following with pulm for work up Laennec's cirrhosis (alcoholic) Cirrhosis with splenomegaly indicative of portal hypertension noted on high- res CT 08/30/20. Peripheral neuropathy Schatzki's ring SNHL (sensorineural hearing loss) SOB (shortness of breath) on exertion Transient ischemic attack Surgical History History of cataract surgery bilateral History of cholecystectomy 2010 History of colonoscopy History of esophagogastroduodenoscopy (EGD) History of hernia repair LI 1965 [facility] S/P left inguinal hernia repair (09/14/20) Left Laparoscopic Inguinal Hernia Repair with Mesh Dr. Roberts 09/14/2020 Family History Mother Heart disease Family/Other Family history of diabetes mellitus [place]AND[place] Other Hypertension Denies family history of Prostate cancer Social History Smoking Status: Never smoker Years Smoked: 10; Second Hand Exposure: Yes (hx); Hx Alcohol Use: No Hx Substance Use: No Preferred Language: Croatian Communication Ability: Effective Hearing Ability: Use of Hearing Aid [employer] Required: No Beliefs That Will Affect Care: None marital status: Current Living Situation: Spouse current occupational status: retired How many Children do You have: 4 Feels Safe at Home: Yes Seatbelt Use: always Assistive Devices: Glasses Allergies Allergies Allergy/AdvReac Type Severity Reaction Status Date / Time No Known Drug Allergies Allergy Unknown Verified 01/16/21 10:28 Home Meds Home Medications Medication Instructions Recorded Confirmed aspirin 81 mg tablet,delayed 81 mg PO QPM 07/22/20 01/19/21 release docusate sodium 100 mg capsule 100 mg PO BID PRN 01/15/21 01/19/21 (Colace) lactulose 10 gram/15 mL oral 10 g PO HS PRN 01/15/21 01/19/21 solution nystatin-triamcinolone 100,000 1 applic TOPICAL BID PRN 01/15/21 01/19/21 unit/g-0.1 % topical cream Previous Rx's Medication Instructions Recorded albuterol sulfate 90 mcg/actuation 1 puff INH Q6H PRN #6.7 gm 05/23/20 aerosol inhaler atorvastatin 20 mg tablet 20 mg PO QPM #90 tab 09/02/20 finasteride 5 mg tablet 5 mg PO QPM #90 tab 11/14/20 terazosin 5 mg capsule 5 mg PO QPM #90 cap 11/14/20 benzonatate 100 mg capsule 100 mg PO BID PRN #30 cap 12/30/20 (Aron Dalal) fluticasone propionate 50 1 spray INTRANASAL DAILY #16 g 01/02/21 mcg/actuation nasal spray,suspension (Flonase Allergy Relief) hydrocodone-homatropine 5 mg-1.5 5 ml PO BID PRN #200 ml 01/16/21 mg/5 mL oral syrup (Hycodan (with homatropine)) levofloxacin 500 mg tablet 500 mg PO DAILY #7 tab 01/16/21 Results & Data (ED) Vital Signs Vital Signs - 24 hr 01/19/21 17:49 01/19/21 18:22 01/19/21 18:30 Temperature 36.9 C Temperature Source Temporal Artery Scan Pulse Rate 88 91 H 83 Pulse Rate from SpO2 Sensor 91 H 86 Respiratory Rate 18 23 34 H Respiratory Effort / Characteristics Non-Labored Respiratory Depth Normal Blood Pressure 131/83 Blood Pressure Mean 99 Pulse Oximetry 94 94 94 Oxygen Delivery Method Room Air Nasal Cannula Nasal Cannula Oxygen Flow Rate 3 3 Sepsis Recent Fever Within 48 Hours No Sepsis New/Unexplained Change in Mental Status No Sepsis Action Taken by Nursing No Action Required Oxygen Flow Rate - Titration Pulse Oximetry Post Tiitration 01/19/21 18:40 01/19/21 18:50 01/19/21 19:00 Temperature Temperature Source Pulse Rate 81 81 79 Pulse Rate from SpO2 Sensor 80 82 79 Respiratory Rate 29 H 23 21 Respiratory Effort / Characteristics Respiratory Depth Blood Pressure Blood Pressure Mean Pulse Oximetry 94 98 99 Oxygen Delivery Method Nasal Cannula Nasal Cannula Nasal Cannula Oxygen Flow Rate 3 3 3 Sepsis Recent Fever Within 48 Hours Sepsis New/Unexplained Change in Mental Status Sepsis Action Taken by Nursing Oxygen Flow Rate - Titration 3 Pulse Oximetry Post Tiitration 95 01/19/21 19:10 01/19/21 19:20 01/19/21 20:00 Temperature Temperature Source Pulse Rate 72 78 76 Pulse Rate from SpO2 Sensor 76 75 78 Respiratory Rate 18 23 20 Respiratory Effort / Characteristics Respiratory Depth Blood Pressure 150/78 H 175/60 H Blood Pressure Mean 102 98 Pulse Oximetry 99 99 99 Oxygen Delivery Method Nasal Cannula Nasal Cannula Nasal Cannula Oxygen Flow Rate 3 3 3 Sepsis Recent Fever Within 48 Hours Sepsis New/Unexplained Change in Mental Status Sepsis Action Taken by Nursing Oxygen Flow Rate - Titration Pulse Oximetry Post Tiitration Home Medications Current Medication List: was personally reviewed by me Laboratory Data Attestation: I reviewed the patient's lab results. Result diagrams: 01/19/21 18:35 01/19/21 18:35 Lab Results 01/19/21 01/19/21 01/19/21 Range/Units 18:35 18:35 18:35 WBC 9.20 (4.8-10.8) K/uL RBC 3.69 L (4.7-6.1) M/uL Hgb 10.6 L (14.0-18.0) g/dL Hct 32.7 L (42-52) % MCV 88.6 (80-100) fL MCH 28.7 (25-34) pg MCHC 32.4 (32-36) g/dL RDW Std Deviation 45.9 (36.4-46.3) fL RDW Coeff of Jordy 14.1 (11.5-14.5) % Plt Count 179 (130-400) K/uL MPV 9.8 (7.4-10.4) fL Immature Gran % (Auto) 0.3 % Neut % (Auto) 86.1 % Lymph % (Auto) 6.1 % [place] % (Auto) 7.2 % Eos % (Auto) 0.2 % Baso % (Auto) 0.1 % Neut # (Auto) 7.92 H (1.4-6.5) K/uL Lymph # (Auto) 0.56 L (1.2-3.4) K/uL [place] # (Auto) 0.66 H (0.11-0.59) K/uL Eos # (Auto) 0.02 (0-0.5) K/uL Baso # (Auto) 0.01 (0-0.2) K/uL Immature Gran # (Auto) 0.03 H (0.00-0.02) K/uL Sodium 138 (136-145) mmol/L Potassium 4.1 (3.5-5.1) mmol/L Chloride 105 (98-107) mmol/L Carbon Dioxide 27 (21-32) mmol/L Anion Gap 6.0 (3-11) BUN 13 (7-18) mg/dl Creatinine 0.63 (0.6-1.4) mg/dl Est Cr Clr Drug Dosing Not Reportable Est GFR ( Amer) 103.4 ml/min Est GFR (Non-Af Amer) 89.2 ml/min BUN/Creatinine Ratio 21.4 H (10-20) Glucose 108 H (70-99) mg/dl Calcium 8.9 (8.5-10.1) mg/dl Total Bilirubin 1.0 (0.2-1) mg/dl AST 24 (15-37) U/L ALT 22 (12-78) U/L Alkaline Phosphatase 113 (45-117) U/L Troponin I < 0.015 (0-0.045) ng/ml NT-Pro-B Natriuret Pep 2722 H (0-1800) pg/ml Total Protein 6.1 L (6.4-8.2) gm/dl Albumin 2.0 L (3.4-5.0) gm/dl Globulin 4.1 H (2.5-4.0) gm/dl Albumin/Globulin Ratio 0.5 L (0.9-2) Lipase 42 L (73-393) U/L Urine Color Urine Appearance (Clear) Urine pH (4.5-7.5) Ur Specific [place] (1.000-1.030) Urine Protein (Negative) Urine Glucose (UA) (Negative) Urine Ketones (Negative) Urine Blood (Negative) Urine Nitrite (Negative) Urine Bilirubin (Negative) Urine Urobilinogen (Negative) Ur Leukocyte Esterase (Negative) Urine WBC (Auto) (0-5) /hpf Urine RBC (Auto) (0-4) /hpf U Hyaline Cast (Auto) (0-5) /lpf U Epithel Cells (Auto) (0-5) /lpf Urine Bacteria (Auto) (Negative) COVID-19 Eval Order SARS-CoV-2 (PCR) (Negative) 01/19/21 01/19/21 01/19/21 Range/Units 20:56 20:56 22:39 WBC (4.8-10.8) K/uL RBC (4.7-6.1) M/uL Hgb (14.0-18.0) g/dL Hct (42-52) % MCV (80-100) fL MCH (25-34) pg MCHC (32-36) g/dL RDW Std Deviation (36.4-46.3) fL RDW Coeff of Jordy (11.5-14.5) % Plt Count (130-400) K/uL MPV (7.4-10.4) fL Immature Gran % (Auto) % Neut % (Auto) % Lymph % (Auto) % [place] % (Auto) % Eos % (Auto) % Baso % (Auto) % Neut # (Auto) (1.4-6.5) K/uL Lymph # (Auto) (1.2-3.4) K/uL [place] # (Auto) (0.11-0.59) K/uL Eos # (Auto) (0-0.5) K/uL Baso # (Auto) (0-0.2) K/uL Immature Gran # (Auto) (0.00-0.02) K/uL Sodium (136-145) mmol/L Potassium (3.5-5.1) mmol/L Chloride (98-107) mmol/L Carbon Dioxide (21-32) mmol/L Anion Gap (3-11) BUN (7-18) mg/dl Creatinine (0.6-1.4) mg/dl Est Cr Clr Drug Dosing Est GFR ( Amer) ml/min Est GFR (Non-Af Amer) ml/min BUN/Creatinine Ratio (10-20) Glucose (70-99) mg/dl Calcium (8.5-10.1) mg/dl Total Bilirubin (0.2-1) mg/dl AST (15-37) U/L ALT (12-78) U/L Alkaline Phosphatase (45-117) U/L Troponin I (0-0.045) ng/ml NT-Pro-B Natriuret Pep (0-1800) pg/ml Total Protein (6.4-8.2) gm/dl Albumin (3.4-5.0) gm/dl Globulin (2.5-4.0) gm/dl Albumin/Globulin Ratio (0.9-2) Lipase (73-393) U/L Urine Color Dark Yellow Urine Appearance Clear (Clear) Urine pH 5.0 (4.5-7.5) Ur Specific [place] 1.028 (1.000-1.030) Urine Protein Trace H (Negative) Urine Glucose (UA) Negative (Negative) Urine Ketones 1+ H (Negative) Urine Blood 2+ H (Negative) Urine Nitrite Negative (Negative) Urine Bilirubin 1+ H (Negative) Urine Urobilinogen Negative (Negative) Ur Leukocyte Esterase Trace H (Negative) Urine WBC (Auto) 1-5 (0-5) /hpf Urine RBC (Auto) >30 H (0-4) /hpf U Hyaline Cast (Auto) 1-5 (0-5) /lpf U Epithel Cells (Auto) 5-10 H (0-5) /lpf Urine Bacteria (Auto) Negative (Negative) COVID-19 Eval Order Covid19 at [facility] SARS-CoV-2 (PCR) NEGATIVE (Negative) Administered Medications Discontinued Medications Furosemide (Furosemide 40 Mg/4 Ml Vial) 40 mg IV ONE ONE Stop: 01/19/21 21:32 Last Admin: 01/19/21 21:43 Dose: 40 mg Documented by: [id number] Sodium Chloride (Nss 1000ml) 1,000 mls @ 999 mls/hr IV .Q1H1M STA Stop: 01/19/21 19:28 Last Infusion: 01/19/21 19:40 Dose: 0 mls/hr Documented by: [id number] Admin: 01/19/21 18:37 Dose: 999 mls/hr Documented by: [id number] Piperacillin Sod/Tazobactam Sod (Zosyn) 4.5 gm in 120 mls @ 240 mls/hr IV NOW ONE Stop: 01/19/21 21:35 Last Admin: 01/19/21 21:46 Dose: 240 mls/hr Documented by: [id number] Ioversol (Optiray 320 100ml) 94 ml IV ONCE ONE Stop: 01/19/21 20:16 Last Admin: 01/19/21 20:21 Dose: 94 ml Documented by: [id number] Morphine Sulfate (Morphine Sulfate 4 Mg/Ml 1 Ml Carp\\Vial) 4 mg IV NOW STA Stop: 01/19/21 18:29 Last Admin: 01/19/21 18:38 Dose: 4 mg Documented by: [id number] Ondansetron HCl (Ondansetron Inj 2 Mg/Ml 2 Ml Vial) 4 mg IV NOW STA Stop: 01/19/21 18:29 Last Admin: 01/19/21 18:38 Dose: 4 mg Documented by: [id number] Imaging Data Radiologist's Impression: Abdomen/Pelvis CT 01/19/21 18:28 CT SCAN OF THE ABDOMEN AND PELVIS WITH IV CONTRAST CLINICAL HISTORY: Generalized abdominal pain. COMPARISON STUDY: Abdominal CT dated 01/15/2021 and 10/01/2017. TECHNIQUE: Following the IV administration of 94 cc of Optiray 320, CT scan of the abdomen and pelvis is performed from the lung bases to the proximal femora. Images are reviewed in the axial, sagittal, and coronal planes. IV contrast was administered without complication. A dose lowering technique was utilized adhering to the principles of ALARA. CT DOSE: 320.54 mGy.cm FINDINGS: Lung bases: The heart is enlarged and without pericardial effusion. The coronary arteries and aortic valve leaflets are densely calcified. There is a small hiatal hernia. There is a small left pleural effusion with consolidation /fibrotic change at the left lung base. Bronchiectasis is noted in the lower lobes. Milder fibrotic change is also seen at the right lung base. Liver: The contrast-enhanced liver is cirrhotic in morphology and heterogeneous and attenuation. There is hypertrophy of the left lobe and nodularity of the surface contour. There is no intrahepatic biliary ductal dilatation. The hepatic veins and portal veins are patent. Gallbladder: Surgically absent noting clips in the gallbladder fossa. Spleen: The spleen is enlarged measuring 17.6 cm in length. Pancreas: Moderately atrophic and grossly unremarkable. Adrenal glands: Unremarkable. Kidneys: The contrast enhanced kidneys demonstrate cortical atrophy and are without hydronephrosis. The kidneys enhance symmetrically. There are numerous tiny nonobstructing renal calculi seen bilaterally. These measure up to 4 mm. No ureteral stone is identified. There is an indeterminant 1.8 cm low-attenuation in the posterior interpolar right kidney seen on image #27. Abdominal vasculature: There is moderate to advanced atherosclerotic calcification and mild ectasia of the abdominal aorta. Bowel: There is rectosigmoid fecal impaction and moderate constipation. No bowel obstruction is identified. The rectal wall is thickened and hyperemic with perir ectal inflammation. The appendix is not identified and reported surgically absent. Peritoneum: There is no intraperitoneal free air or abdominal ascites. Lymphadenopathy: None. Pelvic viscera: The prostate gland is enlarged and heterogeneous noting median lobe hypertrophy. The bladder wall is thickened and trabeculated indicating chronic outlet obstruction. There is a small fat-containing left inguinal hernia. Skeletal structures: The skeletal structures are osteopenic. There is moderate lumbosacral spondylosis. Degenerative changes also seen in the sacroiliac joints. No lytic or blastic lesions are seen. IMPRESSION: 1. There is rectosigmoid fecal impaction and moderate constipation. 2. The rectal wall is thickened and hyperemic with perirectal infiltration. The appearance is consistent with proctitis, likely stercoral. Clinical correlation will be required. 3. Fibrotic change and bronchiectasis is again seen at both lung bases. 4. There is a small left pleural effusion. Superimposed pneumonia at the left lung base is not excluded an clinical correlation will be required. 5. Cardiomegaly. 6. Cirrhotic liver morphology. 7. Splenomegaly. 8. An indeterminant 1.8 cm low-attenuation lesion is suggested in the posterior interpolar right kidney. If warranted, a nonemergent renal protocol MRI could be considered for further evaluation. 9. Bilateral nephrolithiasis. 10. Additional findings as above. ACT 112: Negative or not required by law. Electronically signed by: Darius Rivera M.D. 01/19/2021 8:39 PM Chest X-Ray 01/19/21 20:43 SINGLE VIEW CHEST CLINICAL HISTORY: Hypoxia. FINDINGS: An AP, portable, upright chest radiograph is compared to study dated 01/15/2021 and 06/23/2020. Correlation is made with chest CT dated 11/04/2020. The heart is enlarged noting atherosclerotic calcification of the thoracic aorta. The pulmonary vasculature is noncongested. Chronic fibrotic change and bronchiectasis is again seen throughout both lungs. There is a left pleural effusion, with superimposed airspace consolidation throughout the left lung and in the right upper lobe. No pneumothorax is seen. The skeletal structures are osteopenic. The bony thorax is grossly intact. IMPRESSION: 1. Cardiomegaly without radiographic evidence of congestive failure. 2. Findings of chronic fibrotic lung disease and bronchiectasis are similar to previous. 3. There is a left pleural effusion with superimposed airspace consolidation throughout the left lung and in the right upper lung. This likely represents pneumonia/aspiration pneumonitis. Clinical correlation will be required and radiographic follow-up to resolution is recommended ACT 112: Negative or not required by law. Electronically signed by: Darius Rivera M.D. 01/19/2021 8:56 PM Discharge Plan Visit Data Chief Complaint: Constipation Stated Complaint: CONSTIPATED ED Provider: Wilfred Veloz Discharge Problem: Acute hypoxemic respiratory failure, CHF (congestive heart failure), Leg swelling, Fecal impaction in rectum Patient Disposition: Admitted As Inpatient
[2021-01-19] MEDS ORDERED: SODIUM CHLORIDE 0.9% 1000ML 1,000 ML IV STA (18:28)
[2021-01-19] MEDS ORDERED: MoRPHine SULFATE 4 MG/ML 1 ML CARP\\VIAL IV STA (18:28)
[2021-01-19] MEDS ORDERED: ONDANSETRON INJ 2 MG/ML 2 ML VIAL IV STA (18:28)
[2021-01-19 18:45] LABS: Basophils # (auto) 0.01 K/uL (0-0.2); Basophils % (auto) 0.1 %; Eosinophils # (auto) 0.02 K/uL (0-0.5); Eosinophils % (auto) 0.2 %; Hematocrit (blood only) 32.7 % (42-52); Hemoglobin 10.6 g/dL (14.0-18.0); Immature Granulocytes # (auto) 0.03 K/uL (0.00-0.02); Immature Granulocytes % (auto) 0.3 %; Lymphocytes # (auto) 0.56 K/uL (1.2-3.4); Lymphocytes % (auto) 6.1 %; Mean Corpuscular Hemoglobin 28.7 pg (25-34); Mean Corpuscular Hgb Conc 32.4 g/dL (32-36); Mean Corpuscular Volume 88.6 fL (80-100); Mean Platelet Volume 9.8 fL (7.4-10.4); Monocytes # (auto) 0.66 K/uL (0.11-0.59); Monocytes % (auto) 7.2 %; Neutrophils # (auto) 7.92 K/uL (1.4-6.5); Neutrophils % (auto) 86.1 %; Platelet Count 179 K/uL (130-400); RDW Coefficient of Variation 14.1 % (11.5-14.5); RDW Standard Deviation 45.9 fL (36.4-46.3); Red Blood Count 3.69 M/uL (4.7-6.1)
[2021-01-19 19:07] LABS: Alanine Aminotransferase 22 U/L (12-78); Aspartate Aminotransferase 24 U/L (15-37); BUN Creatinine Ratio 21.4 (10-20); Blood Urea Nitrogen 13 mg/dl (7-18); Calcium 8.9 mg/dl (8.5-10.1); Carbon Dioxide 27 mmol/L (21-32); Chloride 105 mmol/L (98-107); Est GFR (African American) 103.4 ml/min; Est GFR (Non-African American) 89.2 ml/min; Glucose 108 mg/dl (70-99); Lipase 42 U/L (73-393); Potassium 4.1 mmol/L (3.5-5.1); Sodium 138 mmol/L (136-145)
[2021-01-19 19:12] LABS: Albumin Globulin Ratio 0.5 (0.9-2); Alkaline Phosphatase 113 U/L (45-117); Globulin 4.1 gm/dl (2.5-4.0); Total Protein 6.1 gm/dl (6.4-8.2); Troponin I < 0.015 ng/ml (0-0.045)
[2021-01-19] MEDS ORDERED: OPTIRAY 320 100ml IV ONE (20:15)
--- NOTE | 2021-01-19 20:40 | CT Scan Report ---
CT SCAN OF THE ABDOMEN AND PELVIS WITH IV CONTRAST CLINICAL HISTORY: Generalized abdominal pain. COMPARISON STUDY: Abdominal CT dated 01/15/2021 and 10/01/2017. TECHNIQUE: Following the IV administration of 94 cc of Optiray 320, CT scan of the abdomen and pelvi s is performed from the lung bases to the proximal femora. Images are reviewed in the axial, sagittal , and coronal planes. IV contrast was administered without complication. A dose lowering technique wa s utilized adhering to the principles of ALARA. CT DOSE: 320.54 mGy.cm FINDINGS: Lung bases: The heart is enlarged and without pericardial effusion. The coronary arteries and aortic valve leaflets are densely calcified. There is a small hiatal hernia. There is a small left pleural e ffusion with consolidation/fibrotic change at the left lung base. Bronchiectasis is noted in the lowe r lobes. Milder fibrotic change is also seen at the right lung base. Liver: The contrast-enhanced liver is cirrhotic in morphology and heterogeneous and attenuation. Ther e is hypertrophy of the left lobe and nodularity of the surface contour. There is no intrahepatic inge iary ductal dilatation. The hepatic veins and portal veins are patent. Gallbladder: Surgically absent noting clips in the gallbladder fossa. Spleen: The spleen is enlarged measuring 17.6 cm in length. Pancreas: Moderately atrophic and grossly unremarkable. Adrenal glands: Unremarkable. Kidneys: The contrast enhanced kidneys demonstrate cortical atrophy and are without hydronephrosis. T he kidneys enhance symmetrically. There are numerous tiny nonobstructing renal calculi seen bilateral ly. These measure up to 4 mm. No ureteral stone is identified. There is an indeterminant 1.8 cm low-a ttenuation in the posterior interpolar right kidney seen on image #27. Abdominal vasculature: There is moderate to advanced atherosclerotic calcification and mild ectasia o f the abdominal aorta. Bowel: There is rectosigmoid fecal impaction and moderate constipation. No bowel obstruction is ident ified. The rectal wall is thickened and hyperemic with perirectal inflammation. The appendix is not identified and reported surgically absent. Peritoneum: There is no intraperitoneal free air or abdominal ascites. Lymphadenopathy: None. Pelvic viscera: The prostate gland is enlarged and heterogeneous noting median lobe hypertrophy. The bladder wall is thickened and trabeculated indicating chronic outlet obstruction. There is a small fa t-containing left inguinal hernia. Skeletal structures: The skeletal structures are osteopenic. There is moderate lumbosacral spondylosi s. Degenerative changes also seen in the sacroiliac joints. No lytic or blastic lesions are seen. IMPRESSION: 1. There is rectosigmoid fecal impaction and moderate constipation. 2. The rectal wall is thickened and hyperemic with perirectal infiltration. The appearance is consist ent with proctitis, likely stercoral. Clinical correlation will be required. 3. Fibrotic change and bronchiectasis is again seen at both lung bases. 4. There is a small left pleural effusion. Superimposed pneumonia at the left lung base is not exclud ed an clinical correlation will be required. 5. Cardiomegaly. 6. Cirrhotic liver morphology. 7. Splenomegaly. 8. An indeterminant 1.8 cm low-attenuation lesion is suggested in the posterior interpolar right kidn ey. If warranted, a nonemergent renal protocol MRI could be considered for further evaluation. 9. Bilateral nephrolithiasis. 10. Additional findings as above. ACT 112: Negative or not required by law. Electronically signed by: Darius Rivera M.D. 01/19/2021 8:39 PM
[2021-01-19] MEDS ORDERED: LACTULOSE SYRUP 20 GM/30 ML UDC PO STA (20:43)
--- NOTE | 2021-01-19 20:57 | XRay Report ---
SINGLE VIEW CHEST CLINICAL HISTORY: Hypoxia. FINDINGS: An AP, portable, upright chest radiograph is compared to study dated 01/15/2021 and . Correlation is made with chest CT dated 11/04/2020. The heart is enlarged noting atherosclerotic ca lcification of the thoracic aorta. The pulmonary vasculature is noncongested. Chronic fibrotic change and bronchiectasis is again seen throughout both lungs. There is a left pleural effusion, with super imposed airspace consolidation throughout the left lung and in the right upper lobe. No pneumothorax is seen. The skeletal structures are osteopenic. The bony thorax is grossly intact. IMPRESSION: 1. Cardiomegaly without radiographic evidence of congestive failure. 2. Findings of chronic fibrotic lung disease and bronchiectasis are similar to previous. 3. There is a left pleural effusion with superimposed airspace consolidation throughout the left lung and in the right upper lung. This likely represents pneumonia/aspiration pneumonitis. Clinical corre lation will be required and radiographic follow-up to resolution is recommended ACT 112: Negative or not required by law. Electronically signed by: Darius Rivera M.D. 01/19/2021 8:56 PM
[2021-01-19] MEDS ORDERED: PIPERACILLIN/TAZOBACTAM 4.5 GM/120 ML BAG IV ONE (21:06)
[2021-01-19] MEDS ORDERED: PIPERACILL/TAZOBAC CONSULT ACTIVE PRN (21:06)
[2021-01-19] MEDS ORDERED: FUROSEMIDE 40 MG/4 ML VIAL IV ONE (21:31)
--- NOTE | 2021-01-19 22:46 | History & Physical Report ---
Date of Service January 19, 2021 Assessment & Plan (1) Acute hypoxemic respiratory failure: Plan: Acute on chronic respiratory failure with hypoxia/bilateral pneumonia, left greater than right/interstitial pulmonary fibrosis Zosyn 4.5 g IV every 8 hours Duonebs every 4 hours while awake and every 2 hours when necessary. Guaifenesin extended release 1200 mg p.o. twice daily Methylprednisolone 40 mg IV every 8 hours (2) Pneumonia: Plan: See above (3) Stercoral colitis: Plan: Gently rehydrate with IV fluids Was given lactulose by the ED Dulcolax suppository daily as needed Lactulose 30 mg p.o. daily as needed NPO except ice chips and sips with medications until able to take p.o. regularly (4) Benign localized hyperplasia of prostate with urinary obstruction and lower urinary tract symptoms: Plan: Significantly improved after placement of Mora catheter Continue Terazosin 5 mg p.o. every evening and finasteride 5 mg p.o. daily Follows with Dr. Crabtree (5) Interstitial pulmonary fibrosis: Plan: See above (6) Hyperlipidemia: Plan: Continue atorvastatin History of Present Illness Chief Complaint: The patient presents to the emergency department with complaint regarding difficulty with having bowel movements, difficulty urinating, and increasing shortness of breath Primary Care Provider: IRINEO Menjivar The patient is an 85-year-old male with a past medical history including aortic stenosis, urinary tract infections, lower extremity edema, pneumonia, unintentional weight loss, gait abnormality, BPH with LUTS, peripheral neuropathy, Lannec's alcoholic cirrhosis, interstitial pulmonary fibrosis, hypertension, GERD and cerebral infarction. The patient presents with as noted above. Abnormal laboratories: Hemoglobin 10.6, hematocrit 32.7 and albumin 2.0. The patient was COVID-19 negative in the ED Chest x-ray: Cardiomyopathy, chronic lung fibrosis and bronchiectasis, increasing left pleural effusion and pneumonia left greater than right CT scan abdomen pelvis: Stercoral proctitis, cirrhosis, splenomegaly, 1.8 cm right kidney lesion Allergies Allergy/AdvReac Type Severity Reaction Status Date / Time No Known Drug Allergies Allergy Unknown Verified 01/16/21 10:28 Home Medications Medication Instructions Recorded Confirmed Type albuterol sulfate 90 mcg/actuation 1 puff INH Q6H PRN #6.7 gm 05/23/20 01/19/21 Rx aerosol inhaler aspirin 81 mg tablet,delayed 81 mg PO QPM 07/22/20 01/19/21 History release atorvastatin 20 mg tablet 20 mg PO QPM #90 tab 09/02/20 01/19/21 Rx finasteride 5 mg tablet 5 mg PO QPM #90 tab 11/14/20 01/19/21 Rx terazosin 5 mg capsule 5 mg PO QPM #90 cap 11/14/20 01/19/21 Rx benzonatate 100 mg capsule 100 mg PO BID PRN #30 cap 12/30/20 01/19/21 Rx (Tessalon Perles) fluticasone propionate 50 1 spray INTRANASAL DAILY #16 g 01/02/21 01/19/21 Rx mcg/actuation nasal spray,suspension (Flonase Allergy Relief) docusate sodium 100 mg capsule 100 mg PO BID PRN 01/15/21 01/19/21 History (Colace) lactulose 10 gram/15 mL oral 10 g PO HS PRN 01/15/21 01/19/21 History solution nystatin-triamcinolone 100,000 1 applic TOPICAL BID PRN 01/15/21 01/19/21 History unit/g-0.1 % topical cream hydrocodone-homatropine 5 mg-1.5 5 ml PO BID PRN #200 ml 01/16/21 01/19/21 Rx mg/5 mL oral syrup (Hycodan (with homatropine)) levofloxacin 500 mg tablet 500 mg PO DAILY #7 tab 01/16/21 01/19/21 Rx Past Med/Surg History Medical History Aortic valve stenosis At least moderate aortic stenosis. Patient was scheduled for nuclear stress echo 06/01/2020 but due to possible severe aortic stenosis noted on imaging felt best not to perform dobutamine stress. Patient had subsequent follow-up with cardiology, who feel the patient most likely has moderate aortic stenosis. He is asymptomatic. Bronchiectasis Follows with [facility] pulmonary. Per high-red CT 08/30/20, "Severe bronchiectasis and multifocal subpleural reticulation and honeycombing consistent with pulmonary fibrosis. Mild progression since CT of October 14, 2018." Cerebral infarction, unspecified ~8 years ago (~2011). no deficits. Chronic cough Enlarged prostate Gastroesophageal reflux disease (07/21/12) Hearing loss Hyperglycemia Hgb A1C 5.9 on 04/06/20 Hypertension Interstitial pulmonary fibrosis Following with pulm for work up Laennec's cirrhosis (alcoholic) Cirrhosis with splenomegaly indicative of portal hypertension noted on high- res CT 08/30/20. Peripheral neuropathy Schatzki's ring SNHL (sensorineural hearing loss) SOB (shortness of breath) on exertion Transient ischemic attack Surgical History History of cataract surgery bilateral History of cholecystectomy 2010 History of colonoscopy History of esophagogastroduodenoscopy (EGD) History of hernia repair [facility] 1966 [facility] S/P left inguinal hernia repair (09/14/20) Left Laparoscopic Inguinal Hernia Repair with [facility] Dr. Roberts 09/14/2020 Family History Mother Heart disease Family/Other Family history of diabetes mellitus [place]AND[place] Other Hypertension Denies family history of Prostate cancer Social History Smoking Status: Former smoker Years Smoked: 10; Smoking End Date: ; Second Hand Exposure: No; Do You Dip or Chew Tobacco: No; Tobacco Cessation Education Requested by Patient: No Hx Alcohol Use: No Hx Substance Use: No Preferred Language: Setswana Communication Ability: Effective Hearing Ability: Use of Hearing Aid Release And Technical Records Clerk Required: No Beliefs That Will Affect Care: None marital status: Current Living Situation: Spouse current occupational status: retired How many Children do You have: 4 Other Information That Helps Us Care for You: No Feels Safe at Home: Yes Safety Concerns: Feels Safe At This Time Seatbelt Use: always Assistive Devices: Denture - Upper, Denture - Lower, Glasses and Hearing Aid - Bilateral Review of Systems Review of Systems: The patient denies chest pain, palpitations, sore throat, fevers, chills, sweats, nausea, vomiting, blood in urine or stool, lightheadedness, dizziness, headache, memory loss, loss of consciousness, rash, abnormal bruising or bleeding, imbalance, focal weakness, numbness or tingling in arms or legs, generalized arthralgias or myalgias, neck pain, or night sweats. The review of systems is otherwise negative other than for that already noted above, and at least 10 systems have been reviewed. Physical Exam Physical Exam: The patient is awake, alert and oriented 3, well developed and well nourished, normocephalic and atraumatic, lying in bed and in no acute distress. HEENT--PERRL, EOMI, mucous membranes and oropharynx normal. Neck--supple. No JVD. No bruits. Thyroid normal, trachea midline, no adenopathy. Heart--normal S1 and S2. No murmurs, rubs or gallops. Lungs--coarse breath sounds bilaterally, left greater than right. No respirator y distress, no accessory muscle use. Abdomen--normal bowel sounds and soft. Palpable and tender bladder Extremities--no cyanosis or clubbing. No edema. Dermatologic--normal skin turgor, normal color, no abnormal lymph nodes, no rash. Neurologic--cranial nerves II through XII grossly intact. Rheumatologic--normal range of motion. Psychiatric--normal affect. Results & Data Results & Data ([facility]) Vital Signs (Past 12 Hours) Vital Signs Temp Pulse Resp BP Pulse Ox 01/19/21 20:00 76 20 175/60 H 99 01/19/21 19:20 78 23 150/78 H 99 01/19/21 19:10 72 18 99 01/19/21 19:00 79 21 99 01/19/21 18:50 81 23 98 01/19/21 18:40 81 29 H 94 01/19/21 18:30 83 34 H 94 01/19/21 18:22 91 H 23 94 01/19/21 17:49 98.4 F 88 18 131/83 94 Laboratory Results Laboratory Results WBC 8.69 K/uL (4.8-10.8) 01/20/21 04:22 RBC 3.53 M/uL (4.7-6.1) L 01/20/21 04:22 Hgb 10.1 g/dL (14.0-18.0) L 01/20/21 04:22 Hct 31.7 % (42-52) L 01/20/21 04:22 MCV 89.8 fL (80-100) 01/20/21 04:22 MCH 28.6 pg (25-34) 01/20/21 04:22 MCHC 31.9 g/dL (32-36) L 01/20/21 04:22 RDW Std Deviation 46.7 fL (36.4-46.3) H 01/20/21 04:22 RDW Coeff of Jordy 14.3 % (11.5-14.5) 01/20/21 04:22 Plt Count 166 K/uL (130-400) 01/20/21 04:22 MPV 10.1 fL (7.4-10.4) 01/20/21 04:22 Immature Gran % (Auto) 0.3 % 01/20/21 04:22 Neut % (Auto) 80.8 % 01/20/21 04:22 Lymph % (Auto) 10.8 % 01/20/21 04:22 [place] % (Auto) 7.5 % 01/20/21 04:22 Eos % (Auto) 0.5 % 01/20/21 04:22 Baso % (Auto) 0.1 % 01/20/21 04:22 Neut # (Auto) 7.02 K/uL (1.4-6.5) H 01/20/21 04:22 Lymph # (Auto) 0.94 K/uL (1.2-3.4) L 01/20/21 04:22 [place] # (Auto) 0.65 K/uL (0.11-0.59) H 01/20/21 04:22 Eos # (Auto) 0.04 K/uL (0-0.5) 01/20/21 04:22 Baso # (Auto) 0.01 K/uL (0-0.2) 01/20/21 04:22 Immature Gran # (Auto) 0.03 K/uL (0.00-0.02) H 01/20/21 04:22 Sodium 138 mmol/L (136-145) 01/20/21 04:22 Potassium 3.5 mmol/L (3.5-5.1) 01/20/21 04:22 Chloride 101 mmol/L (98-107) 01/20/21 04:22 Carbon Dioxide 33 mmol/L (21-32) H 01/20/21 04:22 Anion Gap 4.0 (3-11) 01/20/21 04:22 BUN 12 mg/dl (7-18) 01/20/21 04:22 Creatinine 0.72 mg/dl (0.6-1.4) 01/20/21 04:22 Est Cr Clr Drug Dosing 68.9 ml/min 01/20/21 04:22 Est GFR ( Amer) 97.9 ml/min 01/20/21 04:22 Est GFR (Non-Af Amer) 84.5 ml/min 01/20/21 04:22 BUN/Creatinine Ratio 16.1 (10-20) 01/20/21 04:22 Glucose 95 mg/dl (70-99) 01/20/21 04:22 Calcium 8.2 mg/dl (8.5-10.1) L 01/20/21 04:22 Total Bilirubin 1.1 mg/dl (0.2-1) H 01/20/21 04:22 AST 25 U/L (15-37) 01/20/21 04:22 ALT 19 U/L (12-78) 01/20/21 04:22 Alkaline Phosphatase 103 U/L (45-117) 01/20/21 04:22 Troponin I < 0.015 ng/ml (0-0.045) 01/19/21 18:35 NT-Pro-B Natriuret Pep 2722 pg/ml (0-1800) H 01/19/21 18:35 Total Protein 5.6 gm/dl (6.4-8.2) L 01/20/21 04:22 Albumin 1.9 gm/dl (3.4-5.0) L 01/20/21 04:22 Globulin 3.7 gm/dl (2.5-4.0) 01/20/21 04:22 Albumin/Globulin Ratio 0.5 (0.9-2) L 01/20/21 04:22 Lipase 42 U/L (73-393) L 01/19/21 18:35 Urine Color Dark Yellow 01/19/21 22:39 Urine Appearance Clear (Clear) 01/19/21 22:39 Urine pH 5.0 (4.5-7.5) 01/19/21 22:39 Ur Specific [place] 1.028 (1.000-1.030) 01/19/21 22:39 Urine Protein Trace (Negative) H 01/19/21 22:39 Urine Glucose (UA) Negative (Negative) 01/19/21 22:39 Urine Ketones 1+ (Negative) H 01/19/21 22:39 Urine Blood 2+ (Negative) H 01/19/21 22:39 Urine Nitrite Negative (Negative) 01/19/21 22:39 Urine Bilirubin 1+ (Negative) H 01/19/21 22:39 Urine Urobilinogen Negative (Negative) 01/19/21 22:39 Ur Leukocyte Esterase Trace (Negative) H 01/19/21 22:39 Urine WBC (Auto) 1-5 /hpf (0-5) 01/19/21 22:39 Urine RBC (Auto) >30 /hpf (0-4) H 01/19/21 22:39 U Hyaline Cast (Auto) 1-5 /lpf (0-5) 01/19/21 22:39 U Epithel Cells (Auto) 5-10 /lpf (0-5) H 01/19/21 22:39 Urine Bacteria (Auto) Negative (Negative) 01/19/21 22:39 COVID-19 Eval Order Covid19 at [facility] 01/19/21 20:56 SARS-CoV-2 (PCR) NEGATIVE (Negative) 01/19/21 20:56 Impressions Abdomen/Pelvis CT 01/19/21 18:28 CT SCAN OF THE ABDOMEN AND PELVIS WITH IV CONTRAST CLINICAL HISTORY: Generalized abdominal pain. COMPARISON STUDY: Abdominal CT dated 01/15/2021 and 10/01/2017. TECHNIQUE: Following the IV administration of 94 cc of Optiray 320, CT scan of the abdomen and pelvis is performed from the lung bases to the proximal femora. Images are reviewed in the axial, sagittal, and coronal planes. IV contrast was administered without complication. A dose lowering technique was utilized adhering to the principles of ALARA. CT DOSE: 320.54 mGy.cm FINDINGS: Lung bases: The heart is enlarged and without pericardial effusion. The coronary arteries and aortic valve leaflets are densely calcified. There is a small hiatal hernia. There is a small left pleural effusion with consolidation/fibrotic change at the left lung base. Bronchiectasis is noted in the lower lobes. Milder fibrotic change is also seen at the right lung base. Liver: The contrast-enhanced liver is cirrhotic in morphology and heterogeneous and attenuation. There is hypertrophy of the left lobe and nodularity of the surface contour. There is no intrahepatic biliary ductal dilatation. The hepatic veins and portal veins are patent. Gallbladder: Surgically absent noting clips in the gallbladder fossa. Spleen: The spleen is enlarged measuring 17.6 cm in length. Pancreas: Moderately atrophic and grossly unremarkable. Adrenal glands: Unremarkable. Kidneys: The contrast enhanced kidneys demonstrate cortical atrophy and are without hydronephrosis. The kidneys enhance symmetrically. There are numerous tiny nonobstructing renal calculi seen bilaterally. These measure up to 4 mm. No ureteral stone is identified. There is an indeterminant 1.8 cm low-attenuation in the posterior interpolar right kidney seen on image #27. Abdominal vasculature: There is moderate to advanced atherosclerotic calcification and mild ectasia of the abdominal aorta. Bowel: There is rectosigmoid fecal impaction and moderate constipation. No bowel obstruction is identified. The rectal wall is thickened and hyperemic with perirectal inflammation. The appendix is not identified and reported surgically absent. Peritoneum: There is no intraperitoneal free air or abdominal ascites. Lymphadenopathy: None. Pelvic viscera: The prostate gland is enlarged and heterogeneous noting median lobe hypertrophy. The bladder wall is thickened and trabeculated indicating chronic outlet obstruction. There is a small fat-containing left inguinal hernia. Skeletal structures: The skeletal structures are osteopenic. There is moderate lumbosacral spondylosis. Degenerative changes also seen in the sacroiliac joints. No lytic or blastic lesions are seen. IMPRESSION: 1. There is rectosigmoid fecal impaction and moderate constipation. 2. The rectal wall is thickened and hyperemic with perirectal infiltration. The appearance is consistent with proctitis, likely stercoral. Clinical correlation will be required. 3. Fibrotic change and bronchiectasis is again seen at both lung bases. 4. There is a small left pleural effusion. Superimposed pneumonia at the left lung base is not excluded an clinical correlation will be required. 5. Cardiomegaly. 6. Cirrhotic liver morphology. 7. Splenomegaly. 8. An indeterminant 1.8 cm low-attenuation lesion is suggested in the posterior interpolar right kidney. If warranted, a nonemergent renal protocol MRI could be considered for further evaluation. 9. Bilateral nephrolithiasis. 10. Additional findings as above. ACT 112: Negative or not required by law. Electronically signed by: Darius Rivera M.D. 01/19/2021 8:39 PM Chest X-Ray 01/19/21 20:43 SINGLE VIEW CHEST CLINICAL HISTORY: Hypoxia. FINDINGS: An AP, portable, upright chest radiograph is compared to study dated 01/15/2021 and 06/23/2020. Correlation is made with chest CT dated 11/04/2020. The heart is enlarged noting atherosclerotic calcification of the thoracic aorta. The pulmonary vasculature is noncongested. Chronic fibrotic change and bronchiectasis is again seen throughout both lungs. There is a left pleural effusion, with superimposed airspace consolidation throughout the left lung and in the right upper lobe. No pneumothorax is seen. The skeletal structures are osteopenic. The bony thorax is grossly intact. IMPRESSION: 1. Cardiomegaly without radiographic evidence of congestive failure. 2. Findings of chronic fibrotic lung disease and bronchiectasis are similar to previous. 3. There is a left pleural effusion with superimposed airspace consolidation throughout the left lung and in the right upper lung. This likely represents pneumonia/aspiration pneumonitis. Clinical correlation will be required and radiographic follow-up to resolution is recommended ACT 112: Negative or not required by law. Electronically signed by: Darius Rivera M.D. 01/19/2021 8:56 PM Code Status & VTE Plan Code Status Full code VTE Prophylaxis Plan VTE Prophylaxis will be ordered: Yes PG Care Time/CCT Total # of Minutes Spent Total Time Spent with Patient: Total time spent is greater than 50% in coordination of care (as documented) at patient's floor/unit and/or counseling patient: Coding Level of Care Code 65959 Initial Inpt Care Lvl 3 Diagnoses Acute hypoxemic respiratory failure J96.01 Pneumonia J18.9 Benign localized hyperplasia of prostate with urinary obstruction and lower urinary tract symptoms N40.1; N13.9 Interstitial pulmonary fibrosis J84.10 Hyperlipidemia E78.5 Stercoral colitis K52.89
[2021-01-19 23:32] LABS: Appearance Urine Clear (Clear); Bacteria Urine Automated Negative (Negative); Blood Urine 2+ (Negative); Color Urine Dark Yellow; Glucose Urine UA Negative (Negative); Ketones Urine 1+ (Negative); Leukocyte Esterase Urine Trace (Negative); Nitrite Urine Negative (Negative); Protein Urine Trace (Negative); RBC Urine Automated >30 /hpf (0-4); Specific Gravity Urine 1.028 (1.000-1.030); Urobilinogen Urine Negative (Negative)
[2021-01-19 23:33] LABS: Bilirubin Urine 1+ (Negative)
[2021-01-20] MEDS ORDERED: LACTULOSE SYRUP 30 GM/45 ML UDP PO PRN (00:55)
[2021-01-20] MEDS ORDERED: ONDANSETRON INJ 2 MG/ML 2 ML VIAL IV PRN (00:55)
[2021-01-20] MEDS ORDERED: PIPERACILL/TAZOBAC CONSULT ACTIVE PRN (00:55)
[2021-01-20] MEDS ORDERED: ACETAMINOPHEN 325 MG TAB PO PRN (00:55)
[2021-01-20] MEDS ORDERED: bisacodyL 10 MG SUPP PR PRN (00:55)
[2021-01-20] MEDS: NSS + 20MEQ KCL 20 MEQ/1,000 ML BAG IV SCH ×2 (02:01→16:40)
[2021-01-20] MEDS: PIPERACILLIN/TAZOBACTAM 3.375 GM in DEXTROSE 5% 100 ML IV SCH ×3 (02:02→17:57)
[2021-01-20 05:24] LABS: Basophils # (auto) 0.01 K/uL (0-0.2); Basophils % (auto) 0.1 %; Eosinophils # (auto) 0.04 K/uL (0-0.5); Eosinophils % (auto) 0.5 %; Hematocrit (blood only) 31.7 % (42-52); Hemoglobin 10.1 g/dL (14.0-18.0); Immature Granulocytes # (auto) 0.03 K/uL (0.00-0.02); Immature Granulocytes % (auto) 0.3 %; Lymphocytes # (auto) 0.94 K/uL (1.2-3.4); Lymphocytes % (auto) 10.8 %; Mean Corpuscular Hemoglobin 28.6 pg (25-34); Mean Corpuscular Hgb Conc 31.9 g/dL (32-36); Mean Corpuscular Volume 89.8 fL (80-100); Mean Platelet Volume 10.1 fL (7.4-10.4); Monocytes # (auto) 0.65 K/uL (0.11-0.59); Monocytes % (auto) 7.5 %; Neutrophils # (auto) 7.02 K/uL (1.4-6.5); Neutrophils % (auto) 80.8 %; Platelet Count 166 K/uL (130-400); RDW Coefficient of Variation 14.3 % (11.5-14.5); RDW Standard Deviation 46.7 fL (36.4-46.3); Red Blood Count 3.53 M/uL (4.7-6.1); White Blood Count 8.69 K/uL (4.8-10.8)
[2021-01-20 05:43] LABS: Albumin Level 1.9 gm/dl (3.4-5.0); BUN Creatinine Ratio 16.1 (10-20); Calcium 8.2 mg/dl (8.5-10.1); Creatinine Clr Calc Pharmacy 68.9 ml/min; Est GFR (African American) 97.9 ml/min; Est GFR (Non-African American) 84.5 ml/min; Potassium 3.5 mmol/L (3.5-5.1)
[2021-01-20 05:45] LABS: Albumin Globulin Ratio 0.5 (0.9-2); Bilirubin,Total 1.1 mg/dl (0.2-1); Globulin 3.7 gm/dl (2.5-4.0); Total Protein 5.6 gm/dl (6.4-8.2)
[2021-01-20] MEDS ORDERED: ENOXAPARIN INJ 30 MG/0.3 ML SYR SQ SCH (06:00)
[2021-01-20] MEDS ORDERED: ALBUT/IPRATROP 3MG/0.5MG NEB 3 ML VIAL NEB SCH (07:00)
[2021-01-20] MEDS ORDERED: ALBUT/IPRATROP 3MG/0.5MG NEB 3 ML VIAL NEB PRN (07:33)
[2021-01-20] MEDS: methylPREDNISolone 40 MG in SYRINGE 0 ML IV SCH ×2 (08:19→16:40)
[2021-01-20] MEDS: guaiFENesin 600 MG TABCR PO SCH ×2 (09:26→22:13)
--- NOTE | 2021-01-20 16:16 | Hospitalist Progress Note ---
Date of Service January 20, 2021 Assessment & Plan (1) Stercoral colitis: Plan: Gently rehydrate with IV fluids, stop now as he is edematous had a BM with lactulose and suppository starte Miralax BID allow liquid diet Zosyn for the colitis (2) Acute hypoxemic respiratory failure: Plan: resolved, has a lot of chronic issues with fibrosis, pleural effusion procalcitonin is negative, less inclined to think this is pneumonia no wheezing, stop Solu Medrol stable on room air at this time, no distress, will monitor (3) Atrial fibrillation: Plan: new issue, will monitor on tele rates in 60's without rate control start on Lovenox q12, will discuss NOAC for discharge (4) Pneumonia: Plan: ruled out, COVID negative, procalcitonin normal continue Zosyn but for colitis (5) Benign localized hyperplasia of prostate with urinary obstruction and lower urinary tract symptoms: Plan: Significantly improved after placement of Mora catheter Continue Terazosin 5 mg p.o. every evening and finasteride 5 mg p.o. daily Follows with Dr. Crabtree (6) Interstitial pulmonary fibrosis: Plan: See above chronic dyspnea and cough, intermittent sputum production no wheezing, stop Solu Medrol (7) Hyperlipidemia: Plan: Continue atorvastatin Admission and Anticipated Discharge Date Admission Date: January 19, 2021 Subjective reviewed chart including imaging and labs procalcitonin is < 1, argues against a pneumonia found to have afib on monitor, rates in the 60's without rate control medication he and his are aware of what afib means as she has it, follows with Dr. Warren patient able to have a decent size BM in the ED prior to coming up to the room he has a cough but this is chronic, has had one for a year, has had dyspnea for a year allow him to have full liquids, stop Solu Medrol as no wheezing on exam Review of Systems Review of Systems: All systems reviewed & are unremarkable except as noted in Subjective Constitutional: + fatigue and + weakness; no fever Respiratory: + cough, + dyspnea, + dyspnea on exertion and + sputum production Cardiovascular: no chest pain Gastrointestinal: + constipation (somewhat relieved); no abdominal pain, no nausea, no vomiting and no diarrhea/loose stools Physical Exam Physical Exam: General: well developed, well nourished, elderly frail male, no acute distress, comfortable Neck: supple, trachea midline, normal thyroid Lungs: some dry crackles, no wheezing, overall diminished breath sounds, normal respiratory effort, no accessory muscle use, no distress Heart: irregular irregular, rate in 60s, S1/S2, systolic murmur, peripheral pulses normal, capillary refill normal, 2+ pitting edema in legs Abdomen: soft, NT, ND, + BS, no hepatomegaly, dense to percussion in left lower quadrant Extremities: normal in appearance, no cyanosis, no petechiae, strength is 5/5 bilaterally, + edema Neuro: awake, cooperative, moves all extremities, no focal motor deficits, CN II-XII intact, sensation in extremities intact, normal speech Skin: warm, dry, no rash, normal turgor Psych: Awake, alert oriented x 3, euthymic affect Results & Data Results & Data ([facility]) Vital Signs (Past 12 Hours) Vital Signs Temp Pulse Pulse Resp BP BP Pulse Ox 01/20/21 15:35 62 01/20/21 15:10 36.5 C 63 20 112/64 95 01/20/21 14:55 36.5 C 68 18 126/62 94 01/20/21 12:02 70 24 131/60 95 01/20/21 07:57 01/20/21 07:56 70 24 113/64 95 01/20/21 07:55 01/20/21 06:20 70 24 125/66 93 01/20/21 04:30 67 21 119/64 90 Pulse Ox 01/20/21 15:35 01/20/21 15:10 01/20/21 14:55 01/20/21 12:02 01/20/21 07:57 95 01/20/21 07:56 01/20/21 07:55 95 01/20/21 06:20 01/20/21 04:30 Laboratory Results Laboratory Results - last 24 hr 01/19/21 01/19/21 01/19/21 18:35 18:35 18:35 WBC 9.20 RBC 3.69 L Hgb 10.6 L Hct 32.7 L MCV 88.6 MCH 28.7 MCHC 32.4 RDW Std Deviation 45.9 RDW Coeff of Jordy 14.1 Plt Count 179 MPV 9.8 Immature Gran % (Auto) 0.3 Neut % (Auto) 86.1 Lymph % (Auto) 6.1 [place] % (Auto) 7.2 Eos % (Auto) 0.2 Baso % (Auto) 0.1 Neut # (Auto) 7.92 H Lymph # (Auto) 0.56 L [place] # (Auto) 0.66 H Eos # (Auto) 0.02 Baso # (Auto) 0.01 Immature Gran # (Auto) 0.03 H Sodium 138 Potassium 4.1 Chloride 105 Carbon Dioxide 27 Anion Gap 6.0 BUN 13 Creatinine 0.63 Est Cr Clr Drug Dosing Not Reportable Est GFR ( Amer) 103.4 Est GFR (Non-Af Amer) 89.2 BUN/Creatinine Ratio 21.4 H Glucose 108 H Calcium 8.9 Total Bilirubin 1.0 AST 24 ALT 22 Alkaline Phosphatase 113 Troponin I < 0.015 NT-Pro-B Natriuret Pep 2722 H Total Protein 6.1 L Albumin 2.0 L Globulin 4.1 H Albumin/Globulin Ratio 0.5 L Lipase 42 L Procalcitonin Urine Color Urine Appearance Urine pH Ur Specific [place] Urine Protein Urine Glucose (UA) Urine Ketones Urine Blood Urine Nitrite Urine Bilirubin Urine Urobilinogen Ur Leukocyte Esterase Urine WBC (Auto) Urine RBC (Auto) U Hyaline Cast (Auto) U Epithel Cells (Auto) Urine Bacteria (Auto) COVID-19 Eval Order SARS-CoV-2 (PCR) 01/19/21 01/19/21 01/19/21 20:56 20:56 22:39 WBC RBC Hgb Hct MCV MCH MCHC RDW Std Deviation RDW Coeff of Jordy Plt Count MPV Immature Gran % (Auto) Neut % (Auto) Lymph % (Auto) [place] % (Auto) Eos % (Auto) Baso % (Auto) Neut # (Auto) Lymph # (Auto) [place] # (Auto) Eos # (Auto) Baso # (Auto) Immature Gran # (Auto) Sodium Potassium Chloride Carbon Dioxide Anion Gap BUN Creatinine Est Cr Clr Drug Dosing Est GFR ( Amer) Est GFR (Non-Af Amer) BUN/Creatinine Ratio Glucose Calcium Total Bilirubin AST ALT Alkaline Phosphatase Troponin I NT-Pro-B Natriuret Pep Total Protein Albumin Globulin Albumin/Globulin Ratio Lipase Procalcitonin Urine Color Dark Yellow Urine Appearance Clear Urine pH 5.0 Ur Specific [place] 1.028 Urine Protein Trace H Urine Glucose (UA) Negative Urine Ketones 1+ H Urine Blood 2+ H Urine Nitrite Negative Urine Bilirubin 1+ H Urine Urobilinogen Negative Ur Leukocyte Esterase Trace H Urine WBC (Auto) 1-5 Urine RBC (Auto) >30 H U Hyaline Cast (Auto) 1-5 U Epithel Cells (Auto) 5-10 H Urine Bacteria (Auto) Negative COVID-19 Eval Order Covid19 at [facility] SARS-CoV-2 (PCR) NEGATIVE 01/20/21 01/20/21 01/20/21 04:22 04:22 13:36 WBC 8.69 RBC 3.53 L Hgb 10.1 L Hct 31.7 L MCV 89.8 MCH 28.6 MCHC 31.9 L RDW Std Deviation 46.7 H RDW Coeff of Jordy 14.3 Plt Count 166 MPV 10.1 Immature Gran % (Auto) 0.3 Neut % (Auto) 80.8 Lymph % (Auto) 10.8 [place] % (Auto) 7.5 Eos % (Auto) 0.5 Baso % (Auto) 0.1 Neut # (Auto) 7.02 H Lymph # (Auto) 0.94 L [place] # (Auto) 0.65 H Eos # (Auto) 0.04 Baso # (Auto) 0.01 Immature Gran # (Auto) 0.03 H Sodium 138 Potassium 3.5 Chloride 101 Carbon Dioxide 33 H Anion Gap 4.0 BUN 12 Creatinine 0.72 Est Cr Clr Drug Dosing 68.9 Est GFR ( Amer) 97.9 Est GFR (Non-Af Amer) 84.5 BUN/Creatinine Ratio 16.1 Glucose 95 Calcium 8.2 L Total Bilirubin 1.1 H AST 25 ALT 19 Alkaline Phosphatase 103 Troponin I NT-Pro-B Natriuret Pep Total Protein 5.6 L Albumin 1.9 L Globulin 3.7 Albumin/Globulin Ratio 0.5 L Lipase Procalcitonin < 0.05 Urine Color Urine Appearance Urine pH Ur Specific [place] Urine Protein Urine Glucose (UA) Urine Ketones Urine Blood Urine Nitrite Urine Bilirubin Urine Urobilinogen Ur Leukocyte Esterase Urine WBC (Auto) Urine RBC (Auto) U Hyaline Cast (Auto) U Epithel Cells (Auto) Urine Bacteria (Auto) COVID-19 Eval Order SARS-CoV-2 (PCR) Medications Administered Current Inpatient Medications Acetaminophen (Acetaminophen 325 Mg Tab) 650 mg PO Q4H PRN PRN Reason: Pain or Fever Stop: 11/28/21 00:54 Albuterol (Albut/Ipratrop 3mg/0.5mg Neb 3 Ml Vial) 3 ml NEB QIDR PRN PRN Reason: Shortness Of Breath Or Wheezing Stop: 02/19/21 06:59 Bisacodyl (Bisacodyl 10 Mg Supp) 10 mg OK DAILY PRN PRN Reason: Constipation Stop: 02/19/21 00:54 Guaifenesin (Guaifenesin 600 Mg Tabcr) 1,200 mg PO Q12H TARIQ Stop: 02/19/21 08:59 Last Admin: 01/20/21 09:26 Dose: 1,200 mg Documented by: Potassium Chloride/Sodium Chloride (Normal Saline W/20 Meq Kcl) 20 meq in 1,000 mls @ 80 mls/hr IV .[id number] [facility] Stop: 01/21/21 02:29 Last Infusion: 01/20/21 15:12 Dose: Infused Documented by: Piperacillin Sod/Tazobactam (Sod 3.375 gm/ Dextrose) 115 mls @ 28.75 mls/hr IV Q8H [facility]; Protocol Stop: 01/27/21 01:59 Last Infusion: 01/20/21 14:15 Dose: Infused Documented by: Methylprednisolone 40 mg/ (Syringe) 0.64 mls @ 1.5 mls/min IV Q8H [facility] Stop: 02/19/21 07:59 Last Admin: 01/20/21 08:19 Dose: 1.5 mls/min Documented by: Lactulose (Lactulose Syrup 30 Gm/45 Ml Udp) 30 gm PO DAILY PRN PRN Reason: Constipation Stop: 02/19/21 00:54 Miscellaneous Information (Piperacill/Tazobac Consult Active) 1 ea N/A UD PRN PRN Reason: Consult Stop: 02/19/21 00:54 Ondansetron HCl (Ondansetron Inj 2 Mg/Ml 2 Ml Vial) 4 mg IV Q6H PRN PRN Reason: Nausea Stop: 02/19/21 00:54 PG Care Time/CCT Total # of Minutes Spent Total Time Spent with Patient: Total time spent is greater than 50% in coordination of care (as documented) at patient's floor/unit and/or counseling patient: Coding Level of Care Code 47198 Subseq Hosp Care Lvl 3 Diagnoses Acute hypoxemic respiratory failure J96.01 Pneumonia J18.9 Stercoral colitis K52.89 Benign localized hyperplasia of prostate with urinary obstruction and lower urinary tract symptoms N40.1; N13.9 Interstitial pulmonary fibrosis J84.10 Hyperlipidemia E78.5 Atrial fibrillation I48.91
--- NOTE | 2021-01-20 18:16 | Electrocardiogram Report ---
Test Reason : Blood Pressure : / mmHG Vent. Rate : 067 BPM Atrial Rate : 375 BPM P-R Int : 000 ms QRS Dur : 100 ms QT Int : 458 ms P-R-T Axes : 000 036 023 degrees QTc Int : 483 ms Atrial fibrillation Prolonged QT Abnormal ECG When compared with ECG of 15-JAN-2021 14:58, QT has lengthened Confirmed by Pawan Warren ([id number]) on 01/20/2021 6:15:40 PM Referred By: REFERRED SELF Confirmed By:Angel Warren
[2021-01-20] MEDS: ENOXAPARIN 80 MG/0.8 ML SYR SQ SCH (18:22)
[2021-01-20] MEDS: POLYETHYLENE (MIRALAX) 17 GM PACK PO SCH (21:32)
[2021-01-21] MEDS: PIPERACILLIN/TAZOBACTAM 3.375 GM in DEXTROSE 5% 100 ML IV SCH ×3 (03:44→17:12)
[2021-01-21] MEDS: ENOXAPARIN 80 MG/0.8 ML SYR SQ SCH ×2 (06:10→15:44)
[2021-01-21] MEDS: guaiFENesin 600 MG TABCR PO SCH ×2 (07:43→21:30)
[2021-01-21] MEDS: POLYETHYLENE (MIRALAX) 17 GM PACK PO SCH ×2 (07:43→21:30)
[2021-01-21 09:18] LABS: Basophils # (auto) 0.01 K/uL (0-0.2); Basophils % (auto) 0.1 %; Eosinophils # (auto) 0.01 K/uL (0-0.5); Eosinophils % (auto) 0.1 %; Hematocrit (blood only) 33.4 % (42-52); Hemoglobin 10.6 g/dL (14.0-18.0); Immature Granulocytes # (auto) 0.02 K/uL (0.00-0.02); Immature Granulocytes % (auto) 0.3 %; Lymphocytes % (auto) 19.8 %; Mean Corpuscular Hemoglobin 28.5 pg (25-34); Mean Corpuscular Hgb Conc 31.7 g/dL (32-36); Mean Corpuscular Volume 89.8 fL (80-100); Mean Platelet Volume 10.2 fL (7.4-10.4); Monocytes # (auto) 0.38 K/uL (0.11-0.59); Neutrophils # (auto) 5.66 K/uL (1.4-6.5); Neutrophils % (auto) 74.7 %; Platelet Count 165 K/uL (130-400); RDW Coefficient of Variation 14.3 % (11.5-14.5); RDW Standard Deviation 46.9 fL (36.4-46.3); Red Blood Count 3.72 M/uL (4.7-6.1); White Blood Count 7.58 K/uL (4.8-10.8)
[2021-01-21 09:49] LABS: Albumin Level 1.8 gm/dl (3.4-5.0); BUN Creatinine Ratio 19.1 (10-20); Calcium 8.9 mg/dl (8.5-10.1); Creatinine Clr Calc Pharmacy 62.8 ml/min; Est GFR (African American) 94.2 ml/min; Est GFR (Non-African American) 81.3 ml/min; Potassium 3.6 mmol/L (3.5-5.1)
[2021-01-21 09:52] LABS: Albumin Globulin Ratio 0.5 (0.9-2); Bilirubin,Total 0.8 mg/dl (0.2-1); Globulin 3.7 gm/dl (2.5-4.0); Total Protein 5.5 gm/dl (6.4-8.2)
[2021-01-21] MEDS ORDERED: FUROSEMIDE 40 MG/4 ML VIAL IV ONE (15:23)
[2021-01-21] MEDS ORDERED: Nursing to Pharmacy Communication SCH (15:30)
[2021-01-21] MEDS: POTASSIUM CHLORIDE CRTAB 20 MEQ TABCR PO SCH (21:31)
[2021-01-21] MEDS: LACTULOSE SYRUP 30 GM/45 ML UDP PO SCH (21:52)
[2021-01-22] MEDS: PIPERACILLIN/TAZOBACTAM 3.375 GM in DEXTROSE 5% 100 ML IV SCH ×2 (02:17→11:15)
[2021-01-22] MEDS: ENOXAPARIN 80 MG/0.8 ML SYR SQ SCH (03:59)
[2021-01-22 06:54] LABS: Basophils # (auto) 0.01 K/uL (0-0.2); Basophils % (auto) 0.1 %; Eosinophils # (auto) 0.07 K/uL (0-0.5); Hematocrit (blood only) 35.8 % (42-52); Hemoglobin 11.4 g/dL (14.0-18.0); Immature Granulocytes # (auto) 0.02 K/uL (0.00-0.02); Immature Granulocytes % (auto) 0.3 %; Lymphocytes # (auto) 1.18 K/uL (1.2-3.4); Lymphocytes % (auto) 17.2 %; Mean Corpuscular Hemoglobin 28.6 pg (25-34); Mean Corpuscular Hgb Conc 31.8 g/dL (32-36); Mean Corpuscular Volume 89.9 fL (80-100); Mean Platelet Volume 10.3 fL (7.4-10.4); Monocytes # (auto) 0.53 K/uL (0.11-0.59); Monocytes % (auto) 7.7 %; Neutrophils # (auto) 5.07 K/uL (1.4-6.5); Neutrophils % (auto) 73.7 %; Platelet Count 173 K/uL (130-400); RDW Coefficient of Variation 14.5 % (11.5-14.5); RDW Standard Deviation 47.2 fL (36.4-46.3); Red Blood Count 3.98 M/uL (4.7-6.1); White Blood Count 6.88 K/uL (4.8-10.8)
[2021-01-22 07:15] LABS: BUN Creatinine Ratio 20.2 (10-20); Calcium 8.6 mg/dl (8.5-10.1); Creatinine Clr Calc Pharmacy 68.9 ml/min; Est GFR (African American) 97.9 ml/min; Est GFR (Non-African American) 84.5 ml/min
[2021-01-22 07:18] LABS: Albumin Globulin Ratio 0.5 (0.9-2); Bilirubin,Total 0.8 mg/dl (0.2-1); Globulin 3.9 gm/dl (2.5-4.0); Total Protein 5.9 gm/dl (6.4-8.2)
[2021-01-22] MEDS: POTASSIUM CHLORIDE CRTAB 20 MEQ TABCR PO SCH (08:19)
[2021-01-22] MEDS: guaiFENesin 600 MG TABCR PO SCH (08:19)
[2021-01-22] MEDS: POLYETHYLENE (MIRALAX) 17 GM PACK PO SCH (08:19)
[2021-01-22] MEDS: LACTULOSE SYRUP 30 GM/45 ML UDP PO SCH (08:19)
--- NOTE | 2021-01-22 12:12 | Hospitalist Progress Note ---
Date of Service January 21, 2021 Assessment & Plan (1) Stercoral colitis: Plan: had a BM with lactulose and suppository started Miralax BID can hold back on laxatives advance diet continue Zosyn for colitis for now, stop antibiotics on discharge (2) Acute hypoxemic respiratory failure: Plan: resolved, has a lot of chronic issues with fibrosis, pleural effusion procalcitonin is negative, less inclined to think this is pneumonia no wheezing, stopped Solu Medrol stable on room air for 48 hours (3) Atrial fibrillation: Plan: new issue, will monitor on tele rates in 60's without rate control start on Lovenox q12, will discuss NOAC for discharge (4) Pneumonia: Plan: ruled out, COVID negative, procalcitonin normal (5) Benign localized hyperplasia of prostate with urinary obstruction and lower urinary tract symptoms: Plan: Significantly improved after placement of Mora catheter Continue Terazosin 5 mg p.o. every evening and finasteride 5 mg p.o. daily Follows with Dr. Crabtree (6) Interstitial pulmonary fibrosis: Plan: See above chronic dyspnea and cough, intermittent sputum production no wheezing, stop Solu Medrol (7) Hyperlipidemia: Plan: Continue atorvastatin Plan: try to discharge on 01/22 if he does well with therapy Admission and Anticipated Discharge Date Admission Date: January 19, 2021 Subjective patient having BM, loose, on Miralax and lactulose he says he has taken Lactulose for years, recently was working with PCP to cut back, use stool softeners he is breathing well, no fever, no cough, eating well labs reviewed, stable at the bedside, updated her he will likely be okay for discharge on 01/22 if he walks well with therapy Review of Systems Review of Systems: All systems reviewed & are unremarkable except as noted in Subjective Gastrointestinal: + diarrhea/loose stools Physical Exam Physical Exam: General: well developed, well nourished, elderly frail male, no acute distress, comfortable Neck: supple, trachea midline, normal thyroid Lungs: some dry crackles, no wheezing, overall diminished breath sounds, normal respiratory effort, no accessory muscle use, no distress Heart: irregular irregular, rate in 60s, S1/S2, systolic murmur, peripheral pulses normal, capillary refill normal, 2+ pitting edema in legs Abdomen: soft, NT, ND, + BS, no hepatomegaly, dense to percussion in left lower quadrant Extremities: normal in appearance, no cyanosis, no petechiae, strength is 5/5 bilaterally, + edema Neuro: awake, cooperative, moves all extremities, no focal motor deficits, CN II-XII intact, sensation in extremities intact, normal speech Skin: warm, dry, no rash, normal turgor Psych: Awake, alert oriented x 3, euthymic affect Results & Data Results & Data ([facility]) Vital Signs (Past 12 Hours) Vital Signs Temp Pulse Pulse Resp BP Pulse Ox 01/22/21 10:58 36.7 C 76 17 125/68 96 01/22/21 08:29 61 01/22/21 07:55 36.6 C 72 18 146/64 H 94 01/22/21 04:29 37.1 C 130 H 18 112/79 95 PG Care Time/CCT Total # of Minutes Spent Total Time Spent with Patient: Total time spent is greater than 50% in coordination of care (as documented) at patient's floor/unit and/or counseling patient: Coding Level of Care Code 66693 Subseq Hosp Care Lvl 2 Diagnoses Stercoral colitis K52.89 Acute hypoxemic respiratory failure J96.01 Atrial fibrillation I48.91 Pneumonia J18.9 Benign localized hyperplasia of prostate with urinary obstruction and lower urinary tract symptoms N40.1; N13.9 Interstitial pulmonary fibrosis J84.10 Hyperlipidemia E78.5
--- NOTE | 2021-01-22 15:32 | Discharge Summary ---
Date of Service January 22, 2021 Admission HPI Per Admitting Provider The patient is an 85-year-old male with a past medical history including aortic stenosis, urinary tract infections, lower extremity edema, pneumonia, unintentional weight loss, gait abnormality, BPH with LUTS, peripheral neuropathy, Lannec's alcoholic cirrhosis, interstitial pulmonary fibrosis, hypertension, GERD and cerebral infarction. The patient presents with as noted above. Abnormal laboratories: Hemoglobin 10.6, hematocrit 32.7 and albumin 2.0. The patient was COVID-19 negative in the ED Chest x-ray: Cardiomyopathy, chronic lung fibrosis and bronchiectasis, increasing left pleural effusion and pneumonia left greater than right CT scan abdomen pelvis: Stercoral proctitis, cirrhosis, splenomegaly, 1.8 cm right kidney lesion Principal Diagnosis Constipation, stercoral colitis Discharge Exam General: well developed, well nourished, elderly frail male, no acute distress, comfortable Neck: supple, trachea midline, normal thyroid Lungs: some dry crackles, no wheezing, overall diminished breath sounds, normal respiratory effort, no accessory muscle use, no distress Heart: irregular irregular, rate in 60s, S1/S2, systolic murmur, peripheral pulses normal, capillary refill normal, trace edema in legs (improved) Abdomen: soft, NT, ND, + BS, no hepatomegaly, dense to percussion in left lower quadrant Extremities: normal in appearance, no cyanosis, no petechiae, strength is 5/5 bilaterally, + edema Neuro: awake, cooperative, moves all extremities, no focal motor deficits, CN II-XII intact, sensation in extremities intact, normal speech Skin: warm, dry, no rash, normal turgor Psych: Awake, alert oriented x 3, euthymic affect Discharge Data Allergies Allergy/AdvReac Type Severity Reaction Status Date / Time No Known Drug Allergies Allergy Unknown Verified 01/16/21 10:28 Consultations 01/19/21 21:31 ED Decision to Admit Stat Ordered Studies 01/19/21 18:28 CT abd pelvis IV con only Stat Hospital Course (1) Stercoral colitis: had a BM with lactulose and suppository started Miralax BID with lactulose several loose stools, feeling better treated with Zosyn for colitis for now, stop antibiotics on discharge needs bowel regimen to stay regular, has been on lactulose daily for many years, started by Dr. Pham encouraged him to stay well hydrated, use colace BID can try taking lactulose TID but if stools are loose cut back to twice or once a day use fiber supplement if no BM in 2 days try suppository or enema follow up with PCP could be referred to GI for chronic constipation issues (2) Acute hypoxemic respiratory failure: resolved in less than 8 hours, has a lot of chronic issues with fibrosis, pleural effusion procalcitonin is negative, less inclined to think this is pneumonia no wheezing, stopped Solu Medrol stable on room air for 72 hours (3) Atrial fibrillation: new issue, will monitor on tele rates in 60's without rate control the entire stay Lovenox q12, will start Eliquis 5mg BID on discharge has an appointment with Dr. Warren in two weeks (4) Benign localized hyperplasia of prostate with urinary obstruction and lower urinary tract symptoms: Significantly improved after placement of Cook catheter was having serious issues urinating Continue Terazosin 5 mg p.o. every evening and finasteride 5 mg p.o. daily leave cook with leg bag Follows with Dr. Crabtree, has an appointment on 01/31, can perform voiding trial at that time (5) Interstitial pulmonary fibrosis: See above chronic dyspnea and cough, intermittent sputum production no wheezing, stopped Solu Medrol (6) Pneumonia: ruled out, COVID negative, procalcitonin normal (7) Hyperlipidemia: Continue atorvastatin discharge to home, he walked well with PT today d/w his at the bedside Total Time Total Time Spent Total Time Spent (In Minutes): 38 Total Time Includes: Examination of the Patient, Discharge Planning and Medication Reconciliation Discharge Plan Discharge Items Patient Disposition: Home - Self-Care Reason For Visit: constipation, urinary retention Discharge Diagnosis: Constipation, colitis Urinary retention Atrial fibrillation Condition on Discharge: Good Goals: follow up with urology for the catheter follow bowel regimen follow up with Dr. Warren regarding atrial fibrillation Activity: Resume your previous activity Weightbearing: Full weightbearing Non-emergency contact: Primary Care Provider Call non-emergency contact if: you have any medication questions Follow-up/Referrals: Aniyah Mcallister CRNP [Primary Care Provider] - (one week) Diet: Heart Healthy Addtl Attending Provider Instructions: Medications: - LACTULOSE: take 15mL three times a day to help keep you regular, can take this evening, see below - ELIQUIS: take 5mg twice a day, for atrial fibrillation, reduce stroke risk, can take this evening - COLACE: want you to take this twice a day, not just as needed, see below CONSTIPATION: ongoing, chronic issue you should stay well hydrated, take Colace twice a day, use fiber supplement daily (benefiber, metamucil) you need to find a regimen that allows you to have a bowel movement once a day or once every other day use the lactulose 15mL three times a day, but if your stools are loose, back off to once a day if you don't have a BM for 2 days, try glycerin suppository or enema follow up with PCP, consider referral to gastroenterology URINARY RETENTION: due to enlarged prostate keep cook with leg bag, follow up with Dr. Crabtree in office on 01/31 for voiding trial ATRIAL FIBRILLATION discovered on monitor, heart rate has been in 40-60's, no need for rate cont rol medication started on Eliquis 5mg twice a day for stroke prevention Pending Studies at Discharge: No Stand-Alone Forms: My [facility] [employer], Smoking Cessation Medications and DC Order Prescriptions: New lactulose 20 gram/30 mL solution 10 g PO TID 30 Days Qty: 1350 RF: 1 Eliquis 5 mg tablet 5 mg PO BID Qty: 60 RF: 3 Continued atorvastatin 20 mg tablet 20 mg PO QPM Qty: 90 RF: 3 albuterol sulfate 90 mcg/actuation HFA aerosol inhaler 1 puff INH Q6H PRN (Reason: shortness of breath or wheezing) Qty: 6.7 RF: 5 fluticasone propionate [Flonase Allergy Relief] 50 mcg/actuation spray,suspension 1 spray intranasal DAILY Qty: 16 RF: 0 terazosin 5 mg capsule 5 mg PO QPM Qty: 90 RF: 3 finasteride 5 mg tablet 5 mg PO QPM Qty: 90 RF: 3 hydrocodone-homatropine [Hycodan (with homatropine)] 5-1.5 mg/5 mL syrup 5 ml PO BID PRN (Reason: cough) Qty: 200 RF: 0 benzonatate [Tessalon Perles] 100 mg capsule 100 mg PO BID PRN (Reason: cough) Qty: 30 RF: 1 aspirin 81 mg Tablet,Delayed Release (Dr/Ec) 81 mg PO QPM RF: 0 nystatin-triamcinolone 100,000-0.1 unit/g-% cream 1 applic topical BID PRN (Reason: Skin Irritation) RF: 0 Changed docusate sodium [Colace] 100 mg capsule 100 mg PO BID Qty: 0 RF: 0 Discontinued levofloxacin 500 mg tablet 500 mg PO DAILY Qty: 7 RF: 0 lactulose 10 gram/15 mL solution 10 g PO HS PRN (Reason: Constipation) RF: 0 Discharge Orders: Discharge Order (Routine); Ordered 01/22/21 Ordered By: Vijay Lopez Admission Data Admit Date/Time: 01/19/21 22:45 Attending Provider: Vijay Lopez Admit Provider: Jose Raul Low Primary Care Provider: Aniyah Mcallister Other Providers: Jose Raul Low Other Interventions: Discharge Summary Assessment (RN) Last Done: 01/22/21 15:34 Coding Level of Care Code D/C DAY MANAGEMENT >30 MINS Diagnoses Stercoral colitis K52.89 Acute hypoxemic respiratory failure J96.01 Atrial fibrillation I48.91 Pneumonia J18.9 Benign localized hyperplasia of prostate with urinary obstruction and lower urinary tract symptoms N40.1; N13.9 Interstitial pulmonary fibrosis J84.10 Hyperlipidemia E78.5
== END 2021-01-22 16:35 | disposition home or self-care (01) | DRG 393 ==
LOC: ED 17:45 → SUATTDRO 22:45 → EDINP 22:45 → 2S 01-20 00:55